=== PATIENT | male | born 1975 | race African-American/Black ===

== ENCOUNTER 2019-01-12 11:24 | Emergency (ER) | payer MEDICAID, OTHER ==
[~2019-01-12] VITALS: Ht 185.4 cm; Wt 97.1 kg
--- NOTE | 2019-01-12 12:25 | NUR ---
PREC;D TO ER FOR C THIAGO QUIET CALM GIVEN CALL LIGHT LAB IN TO DRAW BLOOD AND COLECT URINE
[2019-01-12 12:45] LABS: BASOPHILS # (AUTO) 0.1 /CMM (0.0-0.2); EOSINOPHILS % (AUTO) 0.3 % (0.0-6.0); HEMATOCRIT 43 % (39-51); HEMOGLOBIN 14.7 g/dL (13.5-17.5); LYMPHOCYTES # (AUTO) 1.3 /CMM (0.8-4.8); LYMPHOCYTES % (AUTO) 20.9 % (20.0-44.0); MEAN CORPUSCULAR HGB CONC 34 g/dl (31.0-36.0); MEAN CORPUSCULAR VOLUME 97 fL (80-96); MONOCYTES # (AUTO) 0.7 /CMM (0.1-1.30); MONOCYTES % (AUTO) 11.5 % (2.0-12.0); NEUTROPHILS # (AUTO) 4.2 /CMM (1.8-8.9); NEUTROPHILS % (AUTO) 66.3 % (43.0-81.0); PLATELET COUNT (AUTO) 258 /CMM (150-450); RED BLOOD CELL COUNT(AUTO) 4.48 MIL/uL (4.5-6.0); WHITE BLOOD COUNT (AUTO) 6.3 K/uL (4.3-11.0)
[2019-01-12 13:13] LABS: CALCIUM, SERUM 9.1 mg/dL (8.5-10.1); CARBON DIOXIDE 28 mmol/L (21-32); CHLORIDE 103 mmol/L (98-107); CREATININE 1.1 mg/dL (0.6-1.3); GLUCOSE 99 mg/dL (74-106); POTASSIUM 4.3 mmol/L (3.5-5.1); SODIUM SERUM 138 mmol/L (136-145); UREA NITROGEN, BLOOD 16 mg/dL (7-18)
[2019-01-12 13:27] LABS: ALANINE AMINOTRANSFERASE 79 U/L (12-78); ALBUMIN 3.9 g/dL (3.4-5.0); ALCOHOL, BLOOD < 3 mg/dL (0-0); ALKALINE PHOSPHATASE 66 U/L (46-116); ASPARTATE AMINOTRANSFERASE 66 U/L (15-37); BILIRUBIN,DIRECT 0.4 mg/dL (0.0-0.2); BILIRUBIN,TOTAL 1.8 mg/dL (0.2-1.0); TOTAL PROTEIN, SERUM 7.2 g/dL (6.4-8.2)
[2019-01-12 13:29] LABS: ACETAMINOPHEN 0 ug/ml (10-30); SALICYLATE < 0.2 mg/dL (2.8-20.0)
--- NOTE | 2019-01-12 14:18 | NUR ---
PT UP IN BR WASHING UP BACK TO BED
[2019-01-12 16:18] LABS: APPEARANCE,URINE Clear (CLEAR); BILIRUBIN,URINE Negative (NEGATIVE); BLOOD, URINE Negative Ery/uL (NEGATIVE); COLOR,URINE Yellow (YELLOW); KETONES,URINE Negative (NEGATIVE); LEUKOCYTE ESTERASE ,URINE Trace (NEGATIVE); NITRITE, URINE Negative (NEGATIVE); PROTEIN,URINE Negative (NEGATIVE); UGLUCOSE Negative (NEGATIVE)
[2019-01-12 16:19] LABS: BACTERIA,URINE None seen /HPF (None Seen); RBC,URINE 0-2 /HPF (0-2); SQUAMOUS EPITHELIAL CELL,UR Few /HPF (None Seen); WBC,URINE 0-2 /HPF (0-3)
--- NOTE | 2019-01-12 17:13 | NUR ---
REPORT GIVEN TO KADIE AVERY AT [facility] FOR ALEX
--- NOTE | 2019-01-12 17:14 | NUR ---
RUFUS WILL CALL BLS TO [facility] TRIP #[id number]
--- NOTE | 2019-01-12 17:33 | NUR ---
RUFUS YANEZ TO [facility]. ETA AT [phone]. TRIP #[id number]
[2019-01-12 18:56] VITALS: BP 138/94
--- NOTE | 2019-01-12 19:10 | NUR ---
PT RECEIVED FROM [facility] FOR ALEX. PT IS PENDING TRANSFER TO [facility]. PT IN BED IN STABLE CONDITION. NAD. PT REFUSED TO HAVE HIS VITALS SIGN TAKEN.
--- NOTE | 2019-01-12 20:00 | NUR ---
PT BEING P/U BY AMBULANCE UNIT 113 FOR TRANSPORT TO [facility]. PT IS STABLE FOR TRANSPORT.
== END 2019-01-12 20:10 ==
LOC: EDBD 11:26 → ER 11:26
DX: F25.9 Schizoaffective disorder, unspecified (principal)
CPT/HCPCS: 36415; 80048; 80076; 80305; 80307; 80329; 81001; 85025; 99285; G0480; 81000-TC

== ENCOUNTER 2019-11-04 18:31 | Emergency (ER) | payer MEDICAID, OTHER ==
[~2019-11-04] VITALS: Ht 185.4 cm; Wt 97.5 kg
--- NOTE | 2019-11-04 19:15 | NUR ---
PT TO ER AGGIE SWARTZ UPON ARRIVAL. PT DENIES SI/HI. PT ONLY STATES THAT HE WOULD LIKE TO SPEAK TO A MANAGER ENGLISH. NO SIGNS OF DISTRESS NOTED. PT VITAL SIGNS STABLE. WILL CONT TO MONITOR PT.
[2019-11-04 19:23] LABS: BASOPHILS # (AUTO) 0.1 /CMM (0.0-0.2); BASOPHILS % (AUTO) 0.8 % (0.0-2.0); HEMATOCRIT 45 % (39-51); HEMOGLOBIN 15.1 g/dL (13.5-17.5); LYMPHOCYTES # (AUTO) 1.6 /CMM (0.8-4.8); LYMPHOCYTES % (AUTO) 22.4 % (20.0-44.0); MEAN CORPUSCULAR HGB CONC 33 g/dl (31.0-36.0); MEAN CORPUSCULAR VOLUME 97 fL (80-96); MONOCYTES # (AUTO) 0.5 /CMM (0.1-1.30); MONOCYTES % (AUTO) 7.3 % (2.0-12.0); NEUTROPHILS # (AUTO) 4.9 /CMM (1.8-8.9); NEUTROPHILS % (AUTO) 68.5 % (43.0-81.0); PLATELET COUNT (AUTO) 381 /CMM (150-450); RED BLOOD CELL COUNT(AUTO) 4.68 MIL/uL (4.5-6.0); WHITE BLOOD COUNT (AUTO) 7.2 K/uL (4.3-11.0)
[2019-11-04 19:31] LABS: CALCIUM, SERUM 9.6 mg/dL (8.5-10.1); CARBON DIOXIDE 25 mmol/L (21-32); CHLORIDE 100 mmol/L (98-107); GLUCOSE 109 mg/dL (74-106); SODIUM SERUM 136 mmol/L (136-145); UREA NITROGEN, BLOOD 16 mg/dL (7-18)
[2019-11-04 19:37] LABS: ALANINE AMINOTRANSFERASE 82 U/L (12-78); ALBUMIN 4.3 g/dL (3.4-5.0); ALCOHOL, BLOOD < 3 mg/dL (0-0); ALKALINE PHOSPHATASE 78 U/L (46-116); ASPARTATE AMINOTRANSFERASE 50 U/L (15-37); BILIRUBIN,DIRECT 0.2 mg/dL (0.0-0.2); BILIRUBIN,TOTAL 0.6 mg/dL (0.2-1.0); TOTAL PROTEIN, SERUM 7.9 g/dL (6.4-8.2)
[2019-11-04 19:39] LABS: ACETAMINOPHEN 0 ug/ml (10-30)
[2019-11-04 19:50] LABS: APPEARANCE,URINE Clear (CLEAR); BILIRUBIN,URINE Negative (NEGATIVE); BLOOD, URINE Negative Ery/uL (NEGATIVE); COLOR,URINE Yellow (YELLOW); KETONES,URINE Negative (NEGATIVE); LEUKOCYTE ESTERASE ,URINE Negative (NEGATIVE); NITRITE, URINE Negative (NEGATIVE); PH,URINE 6.5 (5.0-8.0); PROTEIN,URINE 30 mg/dl (NEGATIVE); UGLUCOSE Negative (NEGATIVE); UROBILINOGEN,URINE 0.2 EU/dL (0.2)
[2019-11-04 20:14] LABS: RBC,URINE 0-2 /HPF (0-2); WBC,URINE 0-2 /HPF (0-3)
[2019-11-04 20:15] LABS: BACTERIA,URINE RARE /HPF (None Seen); MUCUS,URINE Few /LPF (None Seen); SPERM,URINE Few /HPF (None Seen); SQUAMOUS EPITHELIAL CELL,UR 0-2 /HPF (None Seen)
[2019-11-04] MEDS ORDERED: OLANZAPINE 5 MG TABLET PO ONE (20:30)
[2019-11-04] MEDS ORDERED: OLANZAPINE 5 MG TABLET ONE (20:36)
--- NOTE | 2019-11-04 22:30 | NUR ---
PT SLEEPING IN [facility] NO SIGNS OF DISTRESS NOTED. PT VITAL SIGNS STABLE. WILL CONT TO MONITOR PT.
--- NOTE | 2019-11-05 04:00 | NUR ---
PT SLEEPING IN [facility] NO SIGNS OF DISTRESS NOTED. PT VITAL SIGNS STABLE. WILL CONT TO MONITOR PT.
--- NOTE | 2019-11-05 08:21 | NUR ---
NABEEL AGUILLON AT BEDSIDE FOR EVAL.
--- NOTE | 2019-11-05 08:59 | NUR ---
FOOD TRAY PROVIDED.
--- NOTE | 2019-11-05 10:55 | NUR ---
Social service consult requested by MD per pt's request. Pt is a 44-year-old male, presenting to the ER because he was sent from [facility] for evaluation prior to being admitted. He wants to be admitted for stabilization, denies auditory/visual examination, denies homicidal/suicidal ideation. LEVELER met with the pt bedside. Pt is alert and oriented x 4. Pt is cooperative and pleasant. Pt reports, he would like to go to an inpatient treatment program. Pt has been to one prior treatment program in the past at [facility] in [place]. LEVELER contacted [facility], however they have no availability at this time. LEVELER contacted Fredy Berg from [facility] for assistance for a treatment program for the pt. Fredy met with the pt and referred pt to [facility]. Per Fredy, he spoke with Veena at [facility] x [phone] who will have a bed for the pt. LEVELER faxed clinical referral packet to Veena at [facility]. JAYSON awaits f/u from [facility]. Addendum: 11/05/19 at 1111 by NABEEL AGUILLON JAYSON left a voicemail message for social work program coordinator at [facility], Ly requesting a call back.
--- NOTE | 2019-11-05 12:15 | NUR ---
ICT PROGRAMMER received a call back from Bhumi at [facility]. Per [facility], it takes a couple of days to review clinicals and there are no beds available at this time. Pt will be placed in a waitlist. ICT PROGRAMMER met with the pt in ED and informed pt about being on a waitlist. ICT PROGRAMMER gave pt phone contact information for Bhumi at [facility] and requested for him to follow up with her daily until a bed is available. Pt understood. ICT PROGRAMMER provided active listening, supportive counseling and validated pt's feelings. ICT PROGRAMMER provided pt with Addiction Resources and Sober living resource list. ICT PROGRAMMER completed [facility] Pre-screen form with the pt and faxed it to [facility] at .
[2019-11-05 12:54] VITALS: BP 121/74
--- NOTE | 2019-11-05 12:54 | NUR ---
Patient given written and verbal discharge instructions. Patient verbalizes understanding of instructions. Patient is ambulatory with steady gait. Refuses offer of nursing home placement. Patient given list of available shelters in surrounding area.
== END 2019-11-05 12:56 | disposition home or self-care (01) ==
LOC: ER 18:40
DX: R45.1 Restlessness and agitation (principal); F19.10 Other psychoactive substance abuse, uncomplicated; F25.9 Schizoaffective disorder, unspecified; F32.9 Major depressive disorder, single episode, unspecified; Z98.890 Other specified postprocedural states
CPT/HCPCS: 36415; 80048; 80076; 80305; 80307; 80329; 81001; 85025; 99283; G0480; 81000-TC

== ENCOUNTER 2019-12-20 02:08 | Emergency (ER) | payer MEDICAID, OTHER ==
[~2019-12-20] VITALS: Ht 185.4 cm; Wt 101.6 kg
--- NOTE | 2019-12-20 02:35 | NUR ---
PT CAME TO THE ED C/O HEARING VOICES AND SI W/ A PLAN TO RUN INTO TRAFFIC. PT AAOX4, RESPIRATIONS EVEN AND UNLABORED ON RA W/ NAD NOTED. PT CONNECTED TO THE MONITOR AND POX, CHANGED INTO GOWN, BELONGINGS PLACED TO LOCKER. SUICIDE PRECAUTIONS IMPLEMNTED. SITTER AT BEDSIDE FOR SAFETY.
[2019-12-20 02:47] LABS: APPEARANCE,URINE CLEAR (CLEAR); BILIRUBIN,URINE NEGATIVE (NEGATIVE); BLOOD, URINE NEGATIVE Ery/uL (NEGATIVE); COLOR,URINE YELLOW (YELLOW); KETONES,URINE NEGATIVE (NEGATIVE); LEUKOCYTE ESTERASE ,URINE NEGATIVE (NEGATIVE); NITRITE, URINE NEGATIVE (NEGATIVE); PH,URINE 6.5 (5.0-8.0); PROTEIN,URINE NEGATIVE (NEGATIVE); UGLUCOSE NEGATIVE (NEGATIVE); UROBILINOGEN,URINE 0.2 EU/dL (0.2)
[2019-12-20 02:53] LABS: BASOPHILS % (AUTO) 0.8 % (0.0-2.0); CALCIUM, SERUM 8.1 mg/dL (8.5-10.1); CARBON DIOXIDE 27 mmol/L (21-32); CHLORIDE 101 mmol/L (98-107); CREATININE 1.3 mg/dL (0.6-1.3); EOSINOPHILS % (AUTO) 1.3 % (0.0-6.0); GLUCOSE 101 mg/dL (74-106); HEMATOCRIT 40 % (39-51); HEMOGLOBIN 13.5 g/dL (13.5-17.5); LYMPHOCYTES % (AUTO) 44.2 % (20.0-44.0); MEAN CORPUSCULAR HGB CONC 34 g/dl (31.0-36.0); MEAN CORPUSCULAR VOLUME 95 fL (80-96); MONOCYTES # (AUTO) 0.5 /CMM (0.1-1.30); MONOCYTES % (AUTO) 10.7 % (2.0-12.0); NEUTROPHILS # (AUTO) 1.9 /CMM (1.8-8.9); PLATELET COUNT (AUTO) 277 /CMM (150-450); POTASSIUM 3.9 mmol/L (3.5-5.1); RED BLOOD CELL COUNT(AUTO) 4.23 MIL/uL (4.5-6.0); SODIUM SERUM 138 mmol/L (136-145); UREA NITROGEN, BLOOD 14 mg/dL (7-18); WHITE BLOOD COUNT (AUTO) 4.4 K/uL (4.3-11.0)
[2019-12-20 02:59] LABS: ACETAMINOPHEN 0 ug/ml (10-30); ALANINE AMINOTRANSFERASE 43 U/L (12-78); ALBUMIN 3.3 g/dL (3.4-5.0); ALCOHOL, BLOOD < 3 mg/dL (0-0); ALKALINE PHOSPHATASE 61 U/L (46-116); ASPARTATE AMINOTRANSFERASE 37 U/L (15-37); BILIRUBIN,DIRECT 0.1 mg/dL (0.0-0.2); BILIRUBIN,TOTAL 0.3 mg/dL (0.2-1.0); SALICYLATE 1.1 mg/dL (2.8-20.0); TOTAL PROTEIN, SERUM 6.9 g/dL (6.4-8.2)
--- NOTE | 2019-12-20 05:01 | NUR ---
PT RESTING COMFORTABLY. NO ACUTE DISTRESS NOTED. VSS
--- NOTE | 2019-12-20 06:13 | NUR ---
PT ACCEPTED TO [facility] BY DR HEMPHILL. UNIT 1. # FOR REPORT [phone]
--- NOTE | 2019-12-20 06:44 | NUR ---
[facility] CALLED FOR BLS TRANSPORT. ETA [phone] TRIP# [id number]
--- NOTE | 2019-12-20 08:10 | NUR ---
REPORT GIVEN TO [facility] NURSING SUPP INES FOR ALEX. WILL ADMIT PATIENT AT 1000 PENDING DISCHARGE.
--- NOTE | 2019-12-20 08:19 | NUR ---
FOOD TRAY PROVIDED.
--- NOTE | 2019-12-20 08:33 | NUR ---
CALLED CALL THE CAR, CHANGED ETA TO 1000. SAME TRIP NUMBER WITH [facility].
[2019-12-20 10:00] VITALS: BP 121/80
== END 2019-12-20 10:04 ==
LOC: ER 02:08
DX: R45.851 Suicidal ideations (principal); F25.9 Schizoaffective disorder, unspecified
CPT/HCPCS: 36415; 80048; 80076; 80305; 80307; 80329; 81001; 85025; 99285; A4349; G0480; 81000-TC

== ENCOUNTER 2020-03-08 14:12 | Emergency (ER) | payer OTHER ==
[~2020-03-08] VITALS: Ht 185.4 cm; Wt 89.8 kg
--- NOTE | 2020-03-08 14:17 | NUR ---
came in stating "I was [place] was told to come here for medical clearance. Depressed, hearing voices", to ER bed 14, hooked to monitor, changed to hosp gown, warm blanket provided, awaiting MD farnsworth.
--- NOTE | 2020-03-08 14:29 | NUR ---
Dr Wyatt at bedside for eval
--- NOTE | 2020-03-08 14:31 | NUR ---
urine sample collected and sent to lab
--- NOTE | 2020-03-08 14:43 | NUR ---
nitriles lab technician at bedside
--- NOTE | 2020-03-08 14:53 | NUR ---
Patient awake alert non distress Lab @ bedside
[2020-03-08 15:00] LABS: BASOPHILS # (AUTO) 0.1 /CMM (0.0-0.2); BASOPHILS % (AUTO) 1.1 % (0.0-2.0); EOSINOPHILS % (AUTO) 0.7 % (0.0-6.0); HEMATOCRIT 43 % (39-51); HEMOGLOBIN 14.4 g/dL (13.5-17.5); LYMPHOCYTES # (AUTO) 2.2 /CMM (0.8-4.8); LYMPHOCYTES % (AUTO) 25.1 % (20.0-44.0); MEAN CORPUSCULAR HGB CONC 33 g/dl (31.0-36.0); MEAN CORPUSCULAR VOLUME 97 fL (80-96); MONOCYTES # (AUTO) 0.6 /CMM (0.1-1.30); MONOCYTES % (AUTO) 7.4 % (2.0-12.0); NEUTROPHILS # (AUTO) 5.8 /CMM (1.8-8.9); NEUTROPHILS % (AUTO) 65.7 % (43.0-81.0); PLATELET COUNT (AUTO) 376 /CMM (150-450); RED BLOOD CELL COUNT(AUTO) 4.46 MIL/uL (4.5-6.0); WHITE BLOOD COUNT (AUTO) 8.8 K/uL (4.3-11.0)
[2020-03-08 15:22] LABS: APPEARANCE,URINE CLEAR (CLEAR); BILIRUBIN,URINE NEGATIVE (NEGATIVE); BLOOD, URINE NEGATIVE Ery/uL (NEGATIVE); COLOR,URINE YELLOW (YELLOW); KETONES,URINE NEGATIVE (NEGATIVE); LEUKOCYTE ESTERASE ,URINE SMALL (NEGATIVE); NITRITE, URINE NEGATIVE (NEGATIVE); PROTEIN,URINE NEGATIVE (NEGATIVE); UGLUCOSE NEGATIVE (NEGATIVE); UROBILINOGEN,URINE 0.2 EU/dL (0.2)
[2020-03-08 15:28] LABS: CALCIUM, SERUM 9.9 mg/dL (8.5-10.1); CARBON DIOXIDE 30 mmol/L (21-32); CHLORIDE 99 mmol/L (98-107); GLUCOSE 86 mg/dL (74-106); POTASSIUM 4.1 mmol/L (3.5-5.1); SODIUM SERUM 136 mmol/L (136-145); UREA NITROGEN, BLOOD 12 mg/dL (7-18)
[2020-03-08 15:36] LABS: ALANINE AMINOTRANSFERASE 54 U/L (12-78); ALCOHOL, BLOOD < 3 mg/dL (0-0); ALKALINE PHOSPHATASE 68 U/L (46-116); ASPARTATE AMINOTRANSFERASE 33 U/L (15-37); BILIRUBIN,DIRECT 0.1 mg/dL (0.0-0.2); BILIRUBIN,TOTAL 0.4 mg/dL (0.2-1.0); TOTAL PROTEIN, SERUM 8.1 g/dL (6.4-8.2)
[2020-03-08 15:44] LABS: ACETAMINOPHEN 0 ug/ml (10-30); SALICYLATE 0.6 mg/dL (2.8-20.0)
--- NOTE | 2020-03-08 16:08 | NUR ---
CALLED [facility] [phone] THEY HAVE A WAIT LIST AND WILL CALL US BACK.
[2020-03-08] MEDS ORDERED: OLANZAPINE 5 MG TABLET PO ONE (17:30)
[2020-03-08] MEDS ORDERED: OLANZAPINE 5 MG TABLET ONE (17:33)
--- NOTE | 2020-03-08 17:37 | NUR ---
PATIENT SITTING AT THE SIDE OF BED, FIXING HIS BELONGINGS, HOOKED TO MONITOR, VSS. WILL CONTINUE TO MONITOR ACCORDINGLY
--- NOTE | 2020-03-08 20:00 | NUR ---
PER [facility], NO BED AVAIALBLE AT [facility] AT THIS TIME
--- NOTE | 2020-03-08 21:19 | NUR ---
PT ASLEEP. PROVIDED WITH BLANKET.
--- NOTE | 2020-03-09 06:36 | NUR ---
PT RESING COMFORTABLY. VSS.
--- NOTE | 2020-03-09 07:06 | NUR ---
PER CJ FROM [facility], NO BEDS AVAILABLE AT THIS TIME
--- NOTE | 2020-03-09 07:54 | NUR ---
[facility] CALL[facility],CJ SAID THEIR FACILITIES ARE AT FULL CAPACITY
--- NOTE | 2020-03-09 10:21 | NUR ---
Social service consult requested by MD for voluntary psychiatric hospitalization. Pt is a 44-year-old male, presenting to the ER stating he has been hearing voices that are constant and not allowing him to continue with his life. He wants to be admitted for stabilization. SUPPLY TECHNICIAN met with the pt bedside. SUPPLY TECHNICIAN conducted chart review and met with the pt bedside. SUPPLY TECHNICIAN introduced self, explained the role of SW and purpose of the visit. SUPPLY TECHNICIAN is familiar with the pt from a previous ED visit. Pt is alert and oriented x 4 with appropriate affect. Pt is cooperative and pleasant. Pt reports, he is hearing voices that are yelling at him and telling him to hurt himself. Pt reports, he usually is able to manage his voices but is not able to do so this time. he would like to go to a psychiatric hospital. Pt has history of substance use/abuse. Pt uses alcohol and methamphetamines. Pt last used methamphetamines two days ago. Pt has a history of Schizoaffective Disorder. Pt has history of psychiatric hospitalizations. JAYSON provided pt with active listening, supportive counseling, emotional support and validation of feelings. JAYSON referred pt to Giancarlo at [facility] for voluntary psychiatric admission. Per Giancarlo, they will have a bed for the pt, however it will be later in the day since the discharges at [facility] are delayed today. JAYSON updated CRN Gener in ED.
--- NOTE | 2020-03-09 14:11 | NUR ---
BELL HOLE DIGGER received a call from Gilma from [facility] intake. pt has been accepted to [facility]. Report needs to be called to process development chemistGAEL Ortiz at x [phone]. Accepting Dr. Ramírez/Dr. Xie.
--- NOTE | 2020-03-09 14:21 | NUR ---
PT HAS BEEN ACCEPTED TO [facility]. Report needs to be called to music adapterGAEL Ortiz at x [phone]. Accepting Dr. Ramírez/Dr. Xie.
--- NOTE | 2020-03-09 14:35 | NUR ---
CALLED TRANSPORT ETA IS 1500 PER RYDER.
--- NOTE | 2020-03-09 15:11 | NUR ---
patient verbalized "i am not suicidal", made aware.
[2020-03-09 15:22] VITALS: BP 122/64
--- NOTE | 2020-03-09 15:22 | NUR ---
patient left without signing discharge paper, denies any pain or discomfort. denies SI/HI.
== END 2020-03-09 15:22 | disposition home or self-care (01) ==
LOC: ER 14:16
DX: R44.0 Auditory hallucinations (principal); R45.851 Suicidal ideations; F32.9 Major depressive disorder, single episode, unspecified; Z04.6 Encounter for general psychiatric examination, requested by authority
CPT/HCPCS: 36415; 80048; 80076; 80305; 80307; 80329; 81001; 85025; 99285; G0480; 81000-TC

== ENCOUNTER 2020-03-19 11:42 | Emergency (ER) | payer OTHER ==
[~2020-03-19] VITALS: Ht 185.4 cm; Wt 97.5 kg
--- NOTE | 2020-03-19 11:54 | NUR ---
NORM RA 102 "Homeless/Hearing voices/suicidal ideation. No Plan", TO ER BED 11, HOOKED TO MONITOR, CHANGED TO HOSP GOWN, WARM BLANKET PROVIDED. PATIENT AAO x 4, NAD NOTED. SUICIDAL PRECAUTIONS APPLIED. SITTER AT BEDSIDE FOR SAFETY
--- NOTE | 2020-03-19 11:57 | NUR ---
SEEN AND EXAMINED BY .
--- NOTE | 2020-03-19 12:02 | NUR ---
SECURITY AT BEDSIDE FOR WANDING. BELONGINGS TAKEN, PLACED AT PATIENT'S LOCKER.
--- NOTE | 2020-03-19 12:10 | NUR ---
URINE SPECIMEN COLLECTED AND SENT TO LAB.
[2020-03-19 12:25] LABS: APPEARANCE,URINE Clear (CLEAR); BILIRUBIN,URINE Negative (NEGATIVE); BLOOD, URINE Negative Ery/uL (NEGATIVE); COLOR,URINE Yellow (YELLOW); KETONES,URINE Negative (NEGATIVE); LEUKOCYTE ESTERASE ,URINE Negative (NEGATIVE); NITRITE, URINE Negative (NEGATIVE); PROTEIN,URINE 30 mg/dl (NEGATIVE); UGLUCOSE Negative (NEGATIVE)
[2020-03-19 12:26] LABS: BACTERIA,URINE None seen /HPF (None Seen); RBC,URINE 0-2 /HPF (0-2); SQUAMOUS EPITHELIAL CELL,UR None Seen /HPF (None Seen); WBC,URINE 0-2 /HPF (0-3)
--- NOTE | 2020-03-19 12:31 | NUR ---
Meryl pathak in [facility] - 03/19/20 at 1235 by TANJA ABBOTT [facility] 115-1
--- NOTE | 2020-03-19 12:35 | NUR ---
ER PHLEB AT BEDSIDE FOR BLOOD DRAW.
[2020-03-19 12:44] LABS: BASOPHILS # (AUTO) 0.1 /CMM (0.0-0.2); BASOPHILS % (AUTO) 1.4 % (0.0-2.0); EOSINOPHILS % (AUTO) 1.2 % (0.0-6.0); HEMATOCRIT 40 % (39-51); LYMPHOCYTES # (AUTO) 1.7 /CMM (0.8-4.8); LYMPHOCYTES % (AUTO) 29.2 % (20.0-44.0); MEAN CORPUSCULAR HGB CONC 33 g/dl (31.0-36.0); MEAN CORPUSCULAR VOLUME 97 fL (80-96); MONOCYTES # (AUTO) 0.6 /CMM (0.1-1.30); MONOCYTES % (AUTO) 10.8 % (2.0-12.0); NEUTROPHILS # (AUTO) 3.4 /CMM (1.8-8.9); NEUTROPHILS % (AUTO) 57.4 % (43.0-81.0); PLATELET COUNT (AUTO) 329 /CMM (150-450); RED BLOOD CELL COUNT(AUTO) 4.11 MIL/uL (4.5-6.0)
[2020-03-19 12:52] LABS: CALCIUM, SERUM 8.8 mg/dL (8.5-10.1); CARBON DIOXIDE 29 mmol/L (21-32); CHLORIDE 104 mmol/L (98-107); GLUCOSE 109 mg/dL (74-106); POTASSIUM 4.1 mmol/L (3.5-5.1); SODIUM SERUM 139 mmol/L (136-145); UREA NITROGEN, BLOOD 10 mg/dL (7-18)
[2020-03-19 12:58] LABS: ACETAMINOPHEN 0 ug/ml (10-30); ALANINE AMINOTRANSFERASE 58 U/L (12-78); ALBUMIN 3.5 g/dL (3.4-5.0); ALCOHOL, BLOOD < 3 mg/dL (0-0); ALKALINE PHOSPHATASE 68 U/L (46-116); ASPARTATE AMINOTRANSFERASE 32 U/L (15-37); BILIRUBIN,DIRECT 0.1 mg/dL (0.0-0.2); BILIRUBIN,TOTAL 0.3 mg/dL (0.2-1.0); SALICYLATE 0.4 mg/dL (2.8-20.0); TOTAL PROTEIN, SERUM 6.8 g/dL (6.4-8.2)
--- NOTE | 2020-03-19 13:30 | NUR ---
Social service consult requested for voluntary psychiatric hospitalization. Per MD notes, pt is a 44-year-old male, patient is brought in by paramedics. Patient states he is hearing voices and feels suicidal. Voices are telling him to run into traffic. ROAD WORKER is familiar with the pt from previous ED visit for the same complaint. ROAD WORKER conducted chart review and contacted Giancarlo at [facility] and initiated psychiatric voluntary hospitalization. ROAD WORKER faxed clinicals to [facility] intake. SW informed Heriberto in ED with aforementioned information.
--- NOTE | 2020-03-19 14:06 | NUR ---
LUNCH TRAY PROVIDED, TOLERATING PO WELL.
--- NOTE | 2020-03-19 16:24 | NUR ---
PT IS ACCEPTED TO [facility] BY NUMBER FOR REPORT [phone]
--- NOTE | 2020-03-19 16:26 | NUR ---
REPORT GIVEN TO [facility]EL [facility]HL[facility].
--- NOTE | 2020-03-19 16:33 | NUR ---
CALLED TRANSPORT ETA IS 60 MINS
--- NOTE | 2020-03-19 17:41 | NUR ---
REPORT GIVEN TO EMT FOR PT TRANSFER TO [facility].
--- NOTE | 2020-03-19 18:06 | NUR ---
PICKED UP BY [facility] UNIT 42 IN STABLE CONDITION, PATIENT WILL BE BROUGHT TO [facility].
[2020-03-19 18:08] VITALS: BP 162/92
== END 2020-03-19 18:09 ==
LOC: ER 11:46
DX: R45.851 Suicidal ideations (principal); F25.9 Schizoaffective disorder, unspecified; Z59.0 Homelessness
CPT/HCPCS: 36415; 80048; 80076; 80305; 80307; 80329; 81001; 85025; 99285; G0480; 81000-TC

== ENCOUNTER 2020-04-13 21:33 | Emergency (ER) | payer OTHER ==
[~2020-04-13] VITALS: Ht 185.4 cm; Wt 90.7 kg
[2020-04-13 22:02] VITALS: BP 125/74
[2020-04-13 22:41] LABS: BASOPHILS # (AUTO) 0.1 /CMM (0.0-0.2); EOSINOPHILS % (AUTO) 0.8 % (0.0-6.0); HEMATOCRIT 43 % (39-51); HEMOGLOBIN 14.2 g/dL (13.5-17.5); LYMPHOCYTES # (AUTO) 2.3 /CMM (0.8-4.8); LYMPHOCYTES % (AUTO) 26.6 % (20.0-44.0); MEAN CORPUSCULAR HGB CONC 33 g/dl (31.0-36.0); MEAN CORPUSCULAR VOLUME 96 fL (80-96); MONOCYTES # (AUTO) 0.7 /CMM (0.1-1.30); MONOCYTES % (AUTO) 7.9 % (2.0-12.0); NEUTROPHILS # (AUTO) 5.5 /CMM (1.8-8.9); NEUTROPHILS % (AUTO) 63.7 % (43.0-81.0); PLATELET COUNT (AUTO) 335 /CMM (150-450); RED BLOOD CELL COUNT(AUTO) 4.52 MIL/uL (4.5-6.0); WHITE BLOOD COUNT (AUTO) 8.6 K/uL (4.3-11.0)
[2020-04-13] MEDS ORDERED: TAMSULOSIN 0.4 MG CAP.SR.24H ONE (22:48)
--- NOTE | 2020-04-13 22:52 | NUR ---
URINE SENT TO LAB
[2020-04-13 22:56] LABS: ALBUMIN 3.5 g/dL (3.4-5.0); BILIRUBIN,DIRECT 0.2 mg/dL (0.0-0.2); BILIRUBIN,TOTAL 0.6 mg/dL (0.2-1.0); CALCIUM, SERUM 8.6 mg/dL (8.5-10.1); CREATININE 1.1 mg/dL (0.6-1.3); TOTAL PROTEIN, SERUM 7.2 g/dL (6.4-8.2)
[2020-04-13] MEDS ORDERED: TAMSULOSIN 0.4 MG CAP.SR.24H PO ONE (23:00)
[2020-04-13 23:10] LABS: APPEARANCE,URINE CLEAR (CLEAR); BILIRUBIN,URINE NEGATIVE (NEGATIVE); BLOOD, URINE NEGATIVE Ery/uL (NEGATIVE); COLOR,URINE YELLOW (YELLOW); KETONES,URINE NEGATIVE (NEGATIVE); LEUKOCYTE ESTERASE ,URINE NEGATIVE (NEGATIVE); NITRITE, URINE NEGATIVE (NEGATIVE); PH,URINE 6.5 (5.0-8.0); PROTEIN,URINE NEGATIVE (NEGATIVE); UGLUCOSE NEGATIVE (NEGATIVE); UROBILINOGEN,URINE 0.2 EU/dL (0.2)
--- NOTE | 2020-04-13 23:42 | NUR ---
Patient discharged to home in stable condition. Written and verbal after care instructions given. Patient verbalizes understanding of instruction. Pt ambulatory with a steady gait
--- NOTE | 2020-04-13 23:45 | NUR ---
HOMELESS WAIVER SIGNED BY THE PATIENT
== END 2020-04-13 23:48 | disposition home or self-care (01) ==
LOC: ER 21:35
DX: N40.0 Benign prostatic hyperplasia without lower urinary tract symptoms (principal); I10 Essential (primary) hypertension; F25.9 Schizoaffective disorder, unspecified; Z98.890 Other specified postprocedural states
CPT/HCPCS: 36415; 80048-TC; 80076-TC; 81000-TC; 83690-TC; 85025-TC

== ENCOUNTER 2020-04-22 13:42 | Emergency (ER) | payer OTHER ==
[~2020-04-22] VITALS: Ht 185.4 cm; Wt 93.0 kg
--- NOTE | 2020-04-22 13:58 | NUR ---
PT AMBULATORY TO ER BED 15. PT IS C/O BEING DEPRESSED X 2 DAYS AND STATES "IM SUICIDAL, RACING THOUGHTS, SUICIDE BY CARPENTER'S ASSISTANT" PT GOWNED. CALLED SECURITY FOR PATIENT WANDING. STABLE VITALS. AWAITING MD POE.
--- NOTE | 2020-04-22 14:00 | NUR ---
SECURITY AT BEDSIDE. PATIENT WANDED, BELONGINGS TO SAFE LOCKER. SITTER AT BEDSIDE.
[2020-04-22] MEDS ORDERED: TAMSULOSIN 0.4 MG CAP.SR.24H ONE (14:30)
[2020-04-22] MEDS ORDERED: TAMSULOSIN 0.4 MG CAP.SR.24H PO ONE (14:30)
[2020-04-22] MEDS ORDERED: ARIPIPRAZOLE 5 MG TABLET PO ONE (14:30)
--- NOTE | 2020-04-22 14:36 | NUR ---
PSYCHOMETRICIAN AT BEDSIDE FOR BLOOD DRAW.
[2020-04-22 14:42] LABS: BASOPHILS # (AUTO) 0.1 /CMM (0.0-0.2); BASOPHILS % (AUTO) 1.3 % (0.0-2.0); EOSINOPHILS % (AUTO) 2.1 % (0.0-6.0); HEMATOCRIT 41 % (39-51); HEMOGLOBIN 13.6 g/dL (13.5-17.5); LYMPHOCYTES # (AUTO) 1.9 /CMM (0.8-4.8); LYMPHOCYTES % (AUTO) 34.7 % (20.0-44.0); MEAN CORPUSCULAR HGB CONC 34 g/dl (31.0-36.0); MEAN CORPUSCULAR VOLUME 97 fL (80-96); MONOCYTES # (AUTO) 0.6 /CMM (0.1-1.30); MONOCYTES % (AUTO) 10.4 % (2.0-12.0); NEUTROPHILS # (AUTO) 2.9 /CMM (1.8-8.9); NEUTROPHILS % (AUTO) 51.5 % (43.0-81.0); PLATELET COUNT (AUTO) 359 /CMM (150-450); WHITE BLOOD COUNT (AUTO) 5.5 K/uL (4.3-11.0)
--- NOTE | 2020-04-22 14:51 | NUR ---
RAPID COVID19 SWAB DONE. SENT TO LAB. PT STILL UNABLE TO PROVIDE URINE SAMPLE. URINAL AT BEDSIDE.
[2020-04-22 14:52] LABS: CALCIUM, SERUM 8.4 mg/dL (8.5-10.1); CARBON DIOXIDE 26 mmol/L (21-32); CHLORIDE 101 mmol/L (98-107); GLUCOSE 132 mg/dL (74-106); POTASSIUM 3.6 mmol/L (3.5-5.1); SODIUM SERUM 136 mmol/L (136-145); UREA NITROGEN, BLOOD 17 mg/dL (7-18)
[2020-04-22 15:07] LABS: ALANINE AMINOTRANSFERASE 38 U/L (12-78); ALBUMIN 3.7 g/dL (3.4-5.0); ALKALINE PHOSPHATASE 67 U/L (46-116); ASPARTATE AMINOTRANSFERASE 34 U/L (15-37); BILIRUBIN,DIRECT 0.2 mg/dL (0.0-0.2); TOTAL PROTEIN, SERUM 7.1 g/dL (6.4-8.2)
[2020-04-22 15:10] LABS: ACETAMINOPHEN 0 ug/ml (10-30); ALCOHOL, BLOOD < 3 mg/dL (0-0); SALICYLATE < 0.2 mg/dL (2.8-20.0)
[2020-04-22 15:53] LABS: APPEARANCE,URINE CLEAR (CLEAR); BILIRUBIN,URINE NEGATIVE (NEGATIVE); BLOOD, URINE NEGATIVE Ery/uL (NEGATIVE); COLOR,URINE YELLOW (YELLOW); KETONES,URINE NEGATIVE (NEGATIVE); LEUKOCYTE ESTERASE ,URINE NEGATIVE (NEGATIVE); NITRITE, URINE NEGATIVE (NEGATIVE); PROTEIN,URINE NEGATIVE (NEGATIVE); UGLUCOSE NEGATIVE (NEGATIVE); UROBILINOGEN,URINE 0.2 EU/dL (0.2)
--- NOTE | 2020-04-22 16:17 | NUR ---
This SW faxed clinical to [phone] at [facility] .
--- NOTE | 2020-04-22 16:40 | NUR ---
3:30pm Medical Claims Analyst consult requested by GAEL Gutierrez for voluntary psychiatric treatment. Patient presented to the ED per MD note "SUICIDE BY SALES SERVICE ASSISTANT. Patient is a 44-year-old Male. Patient is alert and oriented x4. Patient was eating and receptive to speaking with this SW. Patient stopped eating for this assessment and covered his face with a mask per COVID-19. Patient confirmed information on face sheet including date of and demographics. Patient is currently residing in a friends home my own room patient recalled that the home is in [place]. Patient reports conducting ADLs and IADLs independently. Patient reports not working nor receiving benefits such as GR, [employer], SSI,SSD. SW asked this patient if he would like resources on how to apply, patient responded No thank you. I know how to apply for it, just havent done it. Patient denies alcohol use. Patient reports ecstasy use this week but did not want to report how he obtained it. Patient does not report cigarette use. Patient reported being diagnosed with schizophrenia and bipolar. Patient did not report having a primary psychiatrist to this SW. Patients current suicidal ideation is suicide by label sewer. When this SW asked the patient to elaborate, patient became quiet and then responded, suicide by label sewer, exactly what it means. Patient did not report a specific police station or plan. Patient report auditory hallucinations but did not want to report what they tell him. Patient informed this SW that he did not want to present to [facility] today. Patient reports that he has been able to control voices in the past but today was a bad day. This SW affirmed the patients choice to present to [facility]. Patient informed this SW that he would like voluntary psychiatric treatment at this facility ([facility]). This SW informed the patient that there is no unit at this facility to help monitor him, however this SW can refer him to [facility]. Patient agreed to this referral. This SW to fax clinicals to [phone] at [facility] . This SW to inform medical billing coordinator about patients suicide by label sewer plan for [facility] to follow-up. This SW to remain available for all needs regarding this patient.
--- NOTE | 2020-04-22 17:45 | NUR ---
PER [facility], WILL FOLLOW UP IN 15-20 MINUTES REGARDING TRANSFER TO [facility]
--- NOTE | 2020-04-22 18:08 | NUR ---
SPOKE TO [facility]. WAS INFORMED THAT THERE IS NO BED AVAILABLE AT THIS TIME.
--- NOTE | 2020-04-22 18:13 | NUR ---
PRINCESS SILVA - ACCEPTED BY DR. HEMPHILL ROOM NUMBER TO BE GIVEN UPON NURSE TO NURSE REPORT BLUE RN - [phone]
[2020-04-22 18:17] VITALS: BP 135/78
--- NOTE | 2020-04-22 18:21 | NUR ---
[facility] TRANSPORT WITH [facility] ETA: 1999. SPOKE TO "KRSITY".
--- NOTE | 2020-04-22 19:00 | NUR ---
REPORT GIVEN TO BLUE MAYO OF [facility] - THE PATIENT IS CLEARED FOR TRANSFER TO [facility]
--- NOTE | 2020-04-22 20:02 | NUR ---
REPORT GIVEN TO MILLICENT TELLEZ TO TRANSFER PT TO [facility].
== END 2020-04-22 20:21 ==
LOC: ER 13:42
DX: F25.1 Schizoaffective disorder, depressive type (principal); R45.851 Suicidal ideations; N40.0 Benign prostatic hyperplasia without lower urinary tract symptoms; F19.10 Other psychoactive substance abuse, uncomplicated; Z91.14 Patient's other noncompliance with medication regimen; Z20.828 Contact with and (suspected) exposure to other viral communicable diseases
CPT/HCPCS: 36415; 80048; 80076; 80305; 80307; 80329; 81001; 85025; 87426; 99285; C9803; G0480; 81000-TC

== ENCOUNTER 2020-05-02 06:42 | Emergency (ER) | payer OTHER ==
[~2020-05-02] VITALS: Ht 188 cm; Wt 92.5 kg
[2020-05-02 07:59] VITALS: BP 139/84
== END 2020-05-02 08:50 | disposition home or self-care (01) ==
LOC: ER 06:42
DX: G62.9 Polyneuropathy, unspecified (principal); M25.512 Pain in left shoulder; I10 Essential (primary) hypertension; N40.0 Benign prostatic hyperplasia without lower urinary tract symptoms; F25.9 Schizoaffective disorder, unspecified; Z98.890 Other specified postprocedural states

== ENCOUNTER 2020-05-02 13:40 | Emergency (ER) | payer OTHER ==
[~2020-05-02] VITALS: Ht 185.4 cm; Wt 90.7 kg
[2020-05-02 13:45] VITALS: BP 124/70
--- NOTE | 2020-05-02 13:57 | NUR ---
AT BEDSIDE FOR EVAL.
--- NOTE | 2020-05-02 14:42 | NUR ---
Patient given written and verbal discharge instructions. Patient verbalizes understanding of instructions. Patient is ambulatory with steady gait. Ref[place] offer of [place] [facility] [place]. Patient given list of available shelters in surrounding area.
== END 2020-05-02 14:56 | disposition home or self-care (01) ==
LOC: ER 13:45
DX: G62.9 Polyneuropathy, unspecified (principal); M25.512 Pain in left shoulder; I10 Essential (primary) hypertension; N40.0 Benign prostatic hyperplasia without lower urinary tract symptoms; F25.9 Schizoaffective disorder, unspecified; Z98.890 Other specified postprocedural states

== ENCOUNTER 2020-06-22 10:10 | Emergency (ER) | payer OTHER ==
[~2020-06-22] VITALS: Ht 185.4 cm; Wt 90.7 kg
--- NOTE | 2020-06-22 10:10 | NUR ---
PT BIB SELF C/O SI "I WANT THE PM TECHNICIAN TO SHOOT ME" PT IS AAOX4, NOT IN RESPIRATORY DISTRESS, V/S STABLE, KEPT RESTED AND COMFORTABLE. WILL CONTINUE TO MONITOR. SITTER AT BEDSIDE.
--- NOTE | 2020-06-22 10:26 | NUR ---
SEEN AND EXAMINED BY .
--- NOTE | 2020-06-22 10:29 | NUR ---
CALLED SECURITY FOR WANDING.
--- NOTE | 2020-06-22 10:50 | NUR ---
COVID SPECIMEN OBTAINED AND SENT TO LAB.
[2020-06-22] MEDS ORDERED: ZIPRASIDONE 20 MG CAPSULE PO SCH (11:00)
[2020-06-22 11:04] LABS: BASOPHILS % (AUTO) 0.1 % (0.0-2.0); EOSINOPHILS % (AUTO) 0.6 % (0.0-6.0); HEMATOCRIT 44 % (39-51); HEMOGLOBIN 14.7 g/dL (13.5-17.5); LYMPHOCYTES # (AUTO) 1.7 /CMM (0.8-4.8); LYMPHOCYTES % (AUTO) 27.8 % (20.0-44.0); MEAN CORPUSCULAR HGB CONC 33 g/dl (31.0-36.0); MEAN CORPUSCULAR VOLUME 97 fL (80-96); MONOCYTES # (AUTO) 0.6 /CMM (0.1-1.30); MONOCYTES % (AUTO) 9.2 % (2.0-12.0); NEUTROPHILS # (AUTO) 3.8 /CMM (1.8-8.9); NEUTROPHILS % (AUTO) 62.3 % (43.0-81.0); PLATELET COUNT (AUTO) 304 /CMM (150-450); RED BLOOD CELL COUNT(AUTO) 4.52 MIL/uL (4.5-6.0); WHITE BLOOD COUNT (AUTO) 6.1 K/uL (4.3-11.0)
[2020-06-22 11:15] LABS: CALCIUM, SERUM 9.1 mg/dL (8.5-10.1); CARBON DIOXIDE 27 mmol/L (21-32); CHLORIDE 100 mmol/L (98-107); CREATININE 1.1 mg/dL (0.6-1.3); GLUCOSE 96 mg/dL (74-106); POTASSIUM 3.5 mmol/L (3.5-5.1); SODIUM SERUM 133 mmol/L (136-145); UREA NITROGEN, BLOOD 16 mg/dL (7-18)
[2020-06-22 11:28] LABS: ALANINE AMINOTRANSFERASE 54 U/L (12-78); ALBUMIN 3.6 g/dL (3.4-5.0); ALCOHOL, BLOOD < 3 mg/dL (0-0); ALKALINE PHOSPHATASE 76 U/L (46-116); ASPARTATE AMINOTRANSFERASE 37 U/L (15-37); BILIRUBIN,DIRECT 0.3 mg/dL (0.0-0.2); BILIRUBIN,TOTAL 1.3 mg/dL (0.2-1.0); TOTAL PROTEIN, SERUM 7.5 g/dL (6.4-8.2)
[2020-06-22 11:33] LABS: ACETAMINOPHEN 0 ug/ml (10-30)
--- NOTE | 2020-06-22 12:35 | NUR ---
This SW faxed clinicals to [facility] Intake .
[2020-06-22 13:30] LABS: APPEARANCE,URINE Clear (CLEAR); BILIRUBIN,URINE Negative (NEGATIVE); BLOOD, URINE Negative Ery/uL (NEGATIVE); COLOR,URINE Yellow (YELLOW); LEUKOCYTE ESTERASE ,URINE Negative (NEGATIVE); NITRITE, URINE Negative (NEGATIVE); PROTEIN,URINE Negative (NEGATIVE); UGLUCOSE Negative (NEGATIVE)
--- NOTE | 2020-06-22 13:47 | NUR ---
This SW received a call from Yumiko at [facility] . Per Yumiko, patient has been accepted to [place] location [address] [place] [address] Ram[address]ran. Plan: ED RN to call to nursing supervisor maintenance and custodians (unit 2) to provide report.
--- NOTE | 2020-06-22 13:49 | NUR ---
[facility] [phone] GIVE REPORT TO TARA UNIT 2
[2020-06-22 13:55] LABS: BACTERIA,URINE Rare /HPF (None Seen); RBC,URINE 0-2 /HPF (0-2); SQUAMOUS EPITHELIAL CELL,UR Rare /HPF (None Seen); WBC,URINE 0-2 /HPF (0-3)
--- NOTE | 2020-06-22 14:00 | NUR ---
CALLED CALL THE CAR ETA 1500 RES# [id number]
--- NOTE | 2020-06-22 14:22 | NUR ---
REPORT GIVEN TO [facility]EL VILLA OF [facility].
--- NOTE | 2020-06-22 14:41 | NUR ---
[facility] ETA 1531
[2020-06-22 16:23] VITALS: BP 120/69
--- NOTE | 2020-06-22 16:25 | NUR ---
REPORT GIVEN TO EMS FOR PT TRANSFER TO [facility]
== END 2020-06-22 16:32 ==
LOC: ER 10:17
DX: R45.851 Suicidal ideations (principal); N40.0 Benign prostatic hyperplasia without lower urinary tract symptoms; I10 Essential (primary) hypertension; F25.9 Schizoaffective disorder, unspecified; Z59.0 Homelessness
CPT/HCPCS: 36415; 80048; 80076; 80299; 80307; 80320; 81001; 85025; 87426; 99285; C9803; 81000-TC; G0480

== ENCOUNTER 2020-06-30 02:38 | Emergency (ER) | payer OTHER ==
[~2020-06-30] VITALS: Ht 185.4 cm; Wt 90.7 kg
--- NOTE | 2020-06-30 02:57 | NUR ---
PT AAOX4. BIBSELF C/O REQUESTING VOL ADMISSION TO [facility] +SI/-HI "SUICIDE BY CUSTODIAL WORKER." PT PLACED IN GOWN, ON MONITOR, AND PULSE OX. PT BELONINGS PLACED IN LOCKER. SITTER AT BEDSIDE. AWAITING FOR MD FOR EVAL AND ORDERS.
--- NOTE | 2020-06-30 02:58 | NUR ---
URINE COLLECTED AND SENT TO LAB.
--- NOTE | 2020-06-30 02:59 | NUR ---
ALEXEYID SWABBED, SENT TO LAB.
--- NOTE | 2020-06-30 02:59 | NUR ---
TIRE MAINTENANCE TECHNICIAN AT BEDSIDE FOR BLOOD DRAW
[2020-06-30 03:08] LABS: BILIRUBIN,URINE Negative (NEGATIVE); BLOOD, URINE Negative Ery/uL (NEGATIVE); COLOR,URINE Yellow (YELLOW); LEUKOCYTE ESTERASE ,URINE Negative (NEGATIVE); NITRITE, URINE Negative (NEGATIVE); PROTEIN,URINE Negative (NEGATIVE); UGLUCOSE Negative (NEGATIVE); UROBILINOGEN,URINE 0.2 EU/dL (0.2)
[2020-06-30 03:12] LABS: BASOPHILS # (AUTO) 0.1 /CMM (0.0-0.2); BASOPHILS % (AUTO) 1.3 % (0.0-2.0); EOSINOPHILS % (AUTO) 0.2 % (0.0-6.0); HEMATOCRIT 47 % (39-51); HEMOGLOBIN 15.6 g/dL (13.5-17.5); LYMPHOCYTES # (AUTO) 1.8 /CMM (0.8-4.8); MEAN CORPUSCULAR HGB CONC 33 g/dl (31.0-36.0); MEAN CORPUSCULAR VOLUME 98 fL (80-96); MONOCYTES # (AUTO) 0.5 /CMM (0.1-1.30); MONOCYTES % (AUTO) 6.2 % (2.0-12.0); NEUTROPHILS % (AUTO) 68.3 % (43.0-81.0); PLATELET COUNT (AUTO) 348 /CMM (150-450); RED BLOOD CELL COUNT(AUTO) 4.83 MIL/uL (4.5-6.0); WHITE BLOOD COUNT (AUTO) 7.4 K/uL (4.3-11.0)
[2020-06-30 03:18] LABS: CALCIUM, SERUM 9.3 mg/dL (8.5-10.1); CARBON DIOXIDE 30 mmol/L (21-32); CHLORIDE 97 mmol/L (98-107); CREATININE 0.9 mg/dL (0.6-1.3); GLUCOSE 92 mg/dL (74-106); SODIUM SERUM 135 mmol/L (136-145); UREA NITROGEN, BLOOD 15 mg/dL (7-18)
[2020-06-30 03:31] LABS: ALANINE AMINOTRANSFERASE 97 U/L (12-78); ALBUMIN 4.1 g/dL (3.4-5.0); ALCOHOL, BLOOD < 3 mg/dL (0-0); ALKALINE PHOSPHATASE 77 U/L (46-116); ASPARTATE AMINOTRANSFERASE 53 U/L (15-37); BILIRUBIN,DIRECT 0.2 mg/dL (0.0-0.2); BILIRUBIN,TOTAL 0.4 mg/dL (0.2-1.0); TOTAL PROTEIN, SERUM 8.4 g/dL (6.4-8.2)
[2020-06-30 03:36] LABS: ACETAMINOPHEN < 10 ug/ml (10-30)
--- NOTE | 2020-06-30 05:30 | NUR ---
Facesheet and clinicals faxed to Zulema Nieto.
--- NOTE | 2020-06-30 06:46 | NUR ---
PT REMAINS IN BED, ON MONITOR, AND PULSE OX. VSS.
--- NOTE | 2020-06-30 10:27 | NUR ---
PT ACCEPTED IN [facility] ACCEPTING MD IS KANCHAN. CALL [phone] FOR REPORT. VLADIMIR
--- NOTE | 2020-06-30 10:32 | NUR ---
CALLED [id number] [phone] [id number]
--- NOTE | 2020-06-30 12:05 | NUR ---
report given to geraldo MAYO for hua
[2020-06-30] MEDS ORDERED: ASPIRIN 81 MG TAB.CHEW ONE (12:08)
[2020-06-30] MEDS ORDERED: ASPIRIN 81 MG TAB.CHEW PO ONE (12:30)
[2020-06-30 13:52] VITALS: BP 138/71
--- NOTE | 2020-06-30 13:53 | NUR ---
discharge patient via gurney accompanied by 2 emt in no distress going to [facility]. Denies any pain at this time.
== END 2020-06-30 13:53 ==
LOC: ER 02:44
DX: R45.851 Suicidal ideations (principal); F25.9 Schizoaffective disorder, unspecified; F15.90 Other stimulant use, unspecified, uncomplicated; I10 Essential (primary) hypertension; Z20.828 Contact with and (suspected) exposure to other viral communicable diseases; N40.0 Benign prostatic hyperplasia without lower urinary tract symptoms
CPT/HCPCS: 36415; 80048; 80076; 80299; 80307; 80320; 81001; 85025; 87426; 99285; C9803; G0480

== ENCOUNTER 2020-07-07 02:53 | Emergency (ER) | payer OTHER ==
[~2020-07-07] VITALS: Ht 182.9 cm; Wt 90.7 kg
--- NOTE | 2020-07-07 03:07 | NUR ---
BIBRA 39 FOR C/O HEARING VOICES , DENIED SI, HI. REMAINED CALM DURING TRIAGE AND ASSESSMENT. PT WAS PLACED ON A MONITOR. VSS . DENIED ANY PAIN OR DISCOMFORT. SI PRECAUTION IMPLEMENTED. WILL CONT TO MONITOR ,
[2020-07-07 03:20] LABS: BASOPHILS # (AUTO) 0.1 /CMM (0.0-0.2); BASOPHILS % (AUTO) 0.8 % (0.0-2.0); HEMATOCRIT 46 % (39-51); LYMPHOCYTES # (AUTO) 1.3 /CMM (0.8-4.8); LYMPHOCYTES % (AUTO) 12.8 % (20.0-44.0); MEAN CORPUSCULAR HGB CONC 33 g/dl (31.0-36.0); MEAN CORPUSCULAR VOLUME 95 fL (80-96); MONOCYTES # (AUTO) 0.7 /CMM (0.1-1.30); MONOCYTES % (AUTO) 6.9 % (2.0-12.0); NEUTROPHILS # (AUTO) 8.3 /CMM (1.8-8.9); NEUTROPHILS % (AUTO) 79.5 % (43.0-81.0); PLATELET COUNT (AUTO) 347 /CMM (150-450); RED BLOOD CELL COUNT(AUTO) 4.79 MIL/uL (4.5-6.0); WHITE BLOOD COUNT (AUTO) 10.4 K/uL (4.3-11.0)
[2020-07-07] MEDS ORDERED: OLANZAPINE 5 MG TABLET ONE (03:28)
[2020-07-07 03:30] LABS: ALANINE AMINOTRANSFERASE 65 U/L (12-78); ALBUMIN 4.3 g/dL (3.4-5.0); ALCOHOL, BLOOD < 3 mg/dL (0-0); ALKALINE PHOSPHATASE 74 U/L (46-116); ASPARTATE AMINOTRANSFERASE 36 U/L (15-37); BILIRUBIN,DIRECT 0.1 mg/dL (0.0-0.2); BILIRUBIN,TOTAL 0.3 mg/dL (0.2-1.0); CALCIUM, SERUM 9.3 mg/dL (8.5-10.1); CARBON DIOXIDE 28 mmol/L (21-32); CHLORIDE 99 mmol/L (98-107); CREATININE 1.2 mg/dL (0.6-1.3); GLUCOSE 112 mg/dL (74-106); POTASSIUM 4.1 mmol/L (3.5-5.1); SODIUM SERUM 137 mmol/L (136-145); TOTAL PROTEIN, SERUM 8.3 g/dL (6.4-8.2)
[2020-07-07] MEDS ORDERED: OLANZAPINE 5 MG TABLET PO ONE (03:30)
[2020-07-07 03:42] LABS: ACETAMINOPHEN < 10 ug/ml (10-30); UREA NITROGEN, BLOOD 14 mg/dL (7-18)
--- NOTE | 2020-07-07 06:10 | NUR ---
UPON DISCHARGE PT NOW C/O SUICIDAL IDEATION WITH PLAN TO JUMP OFF A BRIDGE. AWARE
--- NOTE | 2020-07-07 06:13 | NUR ---
URINE COLLECTED, SENT TO LAB.
--- NOTE | 2020-07-07 06:13 | NUR ---
CALLED LAB FOR COVID SWAB.
[2020-07-07 06:20] LABS: BILIRUBIN,URINE Negative (NEGATIVE); BLOOD, URINE Negative Ery/uL (NEGATIVE); COLOR,URINE YELLOW (YELLOW); LEUKOCYTE ESTERASE ,URINE Negative (NEGATIVE); NITRITE, URINE Negative (NEGATIVE); PROTEIN,URINE Negative (NEGATIVE); UGLUCOSE Negative (NEGATIVE); UROBILINOGEN,URINE 0.2 EU/dL (0.2)
--- NOTE | 2020-07-07 06:25 | NUR ---
ALEXEYID SWABBED, SENT TO LAB.
--- NOTE | 2020-07-07 07:12 | NUR ---
CLINICAL INFORMATION FAXED TO [facility]
--- NOTE | 2020-07-07 08:13 | NUR ---
report given to chance keys [phone] at [facility] for hua. pt will be going to unit 1. pt will be under ml butler (psych) and dr. gomez.
--- NOTE | 2020-07-07 08:37 | NUR ---
CALLED [id number] TALKED WITH [facility] RESERVATION NUMBER IS [phone]
--- NOTE | 2020-07-07 08:46 | NUR ---
ETA IS 30 MINS [facility]
--- NOTE | 2020-07-07 10:00 | NUR ---
Patient discharged to home in stable condition. Written and verbal after care instructions given. Patient verbalizes understanding of instruction.
[2020-07-07 10:36] VITALS: BP 142/85
== END 2020-07-07 10:36 ==
LOC: ER 02:54
DX: F23 Brief psychotic disorder (principal); R45.851 Suicidal ideations; F25.9 Schizoaffective disorder, unspecified; Z20.828 Contact with and (suspected) exposure to other viral communicable diseases; I10 Essential (primary) hypertension; N40.0 Benign prostatic hyperplasia without lower urinary tract symptoms
CPT/HCPCS: 36415; 80048; 80076; 80299; 80307; 80320; 81001; 85025; 87426; 99285; C9803; G0480

== ENCOUNTER 2020-07-07 13:30 | Emergency (ER) | payer OTHER ==
[~2020-07-07] VITALS: Ht 185.4 cm; Wt 93.0 kg
[2020-07-07 14:23] VITALS: BP 186/104
[2020-07-07] MEDS ORDERED: IV NS 0.9% 1,000 ML BAG IV ONE (14:30)
--- NOTE | 2020-07-07 14:42 | NUR ---
SOUMYA FROM [facility] TO ER BED 5. AAOX4. NOT IN RESP DISTRESS, BREATHING EVEN AND UNLABORED. PT CAME IN FOR "I FEEL MY PROSTATES IS ABOUT TO POP" WHEN ASKED THE PT EXPLAIN. PT SAYS THAT HE FEELS THIS NUMBNESS ON HIS ABDOMEN. DENIES ANY NAUSEA AND VOMMITING. PAIN IS INTERMITENT IN NATURE. WAS AT THE BEDSIDE FOR EVAL. ORDERS RECEIVED, NOTED AND CARRIED OUT. IV LINE ESTABLISHED ON RFA 18G. BLOOD DRAWN AND GIVEN TO SMALL APPLIANCE ASSEMBLY SUPERVISOR.
[2020-07-07 14:48] LABS: BASOPHILS # (AUTO) 0.1 /CMM (0.0-0.2); BASOPHILS % (AUTO) 0.6 % (0.0-2.0); EOSINOPHILS % (AUTO) 0.2 % (0.0-6.0); HEMATOCRIT 45 % (39-51); LYMPHOCYTES # (AUTO) 1.7 /CMM (0.8-4.8); MEAN CORPUSCULAR HGB CONC 34 g/dl (31.0-36.0); MEAN CORPUSCULAR VOLUME 96 fL (80-96); MONOCYTES # (AUTO) 0.7 /CMM (0.1-1.30); NEUTROPHILS # (AUTO) 6.4 /CMM (1.8-8.9); NEUTROPHILS % (AUTO) 72.2 % (43.0-81.0); PLATELET COUNT (AUTO) 343 /CMM (150-450); RED BLOOD CELL COUNT(AUTO) 4.67 MIL/uL (4.5-6.0); WHITE BLOOD COUNT (AUTO) 8.9 K/uL (4.3-11.0)
[2020-07-07] MEDS ORDERED: OLANZAPINE 5 MG TABLET ONE (14:58)
[2020-07-07] MEDS ORDERED: OLANZAPINE ZYDIS 5 MG TAB.RAPDIS PO ONE (15:00)
[2020-07-07 15:15] LABS: CALCIUM, SERUM 9.2 mg/dL (8.5-10.1); CARBON DIOXIDE 26 mmol/L (21-32); CHLORIDE 102 mmol/L (98-107); GLUCOSE 105 mg/dL (74-106); SODIUM SERUM 138 mmol/L (136-145); UREA NITROGEN, BLOOD 14 mg/dL (7-18)
--- NOTE | 2020-07-07 15:20 | NUR ---
Patient does not wish to proceed with medical care recommended by Vinay Ramirez. Patient given information related to possible complications, up to and including , which could occur as a result of leaving the hospital at this time. Patient verbalizes understanding of risks involved due to leaving against medical advice. Patient has signed AMA form.
[2020-07-07 15:23] LABS: ALANINE AMINOTRANSFERASE 69 U/L (12-78); ALBUMIN 4.1 g/dL (3.4-5.0); ALKALINE PHOSPHATASE 75 U/L (46-116); ASPARTATE AMINOTRANSFERASE 56 U/L (15-37); BILIRUBIN,DIRECT 0.2 mg/dL (0.0-0.2); BILIRUBIN,TOTAL 0.7 mg/dL (0.2-1.0)
== END 2020-07-07 15:21 | disposition left against medical advice (07) ==
LOC: ER 13:33
DX: F29 Unspecified psychosis not due to a substance or known physiological condition (principal); R00.0 Tachycardia, unspecified; I10 Essential (primary) hypertension; F25.9 Schizoaffective disorder, unspecified; Z98.890 Other specified postprocedural states
CPT/HCPCS: 36415; 71045-TC; 80048-TC; 80076-TC; 83605-TC; 84484-TC; 85025-TC; 85730-TC; 87040-TC

== ENCOUNTER 2020-08-02 01:21 | Emergency (ER) | payer OTHER ==
[~2020-08-02] VITALS: Ht 182.9 cm; Wt 90.7 kg
[2020-08-02 01:30] VITALS: BP 121/61
== END 2020-08-02 03:04 | disposition home or self-care (01) ==
LOC: ER 01:21
DX: B35.3 Tinea pedis (principal); B86 Scabies; I10 Essential (primary) hypertension; Z98.890 Other specified postprocedural states

== ENCOUNTER 2020-09-10 22:53 | Emergency (ER) | payer OTHER ==
[~2020-09-10] VITALS: Ht 182.9 cm; Wt 86.2 kg
[2020-09-11 00:21] LABS: BASOPHILS # (AUTO) 0.1 /CMM (0.0-0.2); BASOPHILS % (AUTO) 1.1 % (0.0-2.0); EOSINOPHILS % (AUTO) 0.2 % (0.0-6.0); HEMATOCRIT 42 % (39-51); HEMOGLOBIN 14.1 g/dL (13.5-17.5); LYMPHOCYTES # (AUTO) 1.8 /CMM (0.8-4.8); LYMPHOCYTES % (AUTO) 32.8 % (20.0-44.0); MEAN CORPUSCULAR HGB CONC 33 g/dl (31.0-36.0); MEAN CORPUSCULAR VOLUME 95 fL (80-96); MONOCYTES # (AUTO) 0.3 /CMM (0.1-1.30); NEUTROPHILS # (AUTO) 3.3 /CMM (1.8-8.9); NEUTROPHILS % (AUTO) 59.9 % (43.0-81.0); PLATELET COUNT (AUTO) 340 /CMM (150-450); RED BLOOD CELL COUNT(AUTO) 4.45 MIL/uL (4.5-6.0); WHITE BLOOD COUNT (AUTO) 5.5 K/uL (4.3-11.0)
[2020-09-11 01:06] LABS: ALANINE AMINOTRANSFERASE 56 U/L (12-78); ALCOHOL, BLOOD 18 mg/dL (0-0); ALKALINE PHOSPHATASE 75 U/L (46-116); ASPARTATE AMINOTRANSFERASE 36 U/L (15-37); BILIRUBIN,DIRECT 0.2 mg/dL (0.0-0.2); BILIRUBIN,TOTAL 0.4 mg/dL (0.2-1.0); CARBON DIOXIDE 29 mmol/L (21-32); CHLORIDE 102 mmol/L (98-107); GLUCOSE 90 mg/dL (74-106); POTASSIUM 3.8 mmol/L (3.5-5.1); SODIUM SERUM 139 mmol/L (136-145); TOTAL PROTEIN, SERUM 7.7 g/dL (6.4-8.2); UREA NITROGEN, BLOOD 14 mg/dL (7-18)
[2020-09-11 01:09] LABS: ACETAMINOPHEN < 2 ug/ml (10-30)
[2020-09-11 01:26] LABS: BILIRUBIN,URINE NEGATIVE (NEGATIVE); COLOR,URINE YELLOW (YELLOW); LEUKOCYTE ESTERASE ,URINE NEGATIVE (NEGATIVE); NITRITE, URINE NEGATIVE (NEGATIVE); PROTEIN,URINE NEGATIVE (NEGATIVE); UGLUCOSE NEGATIVE (NEGATIVE); UROBILINOGEN,URINE 0.2 EU/dL (0.2)
[2020-09-11 04:36] VITALS: BP 118/96
== END 2020-09-11 05:02 ==
LOC: ER 22:59
DX: R45.851 Suicidal ideations (principal); F25.9 Schizoaffective disorder, unspecified; N40.0 Benign prostatic hyperplasia without lower urinary tract symptoms; I10 Essential (primary) hypertension; Z20.822 Contact with and (suspected) exposure to COVID-19
CPT/HCPCS: 36415; 80048; 80076; 80299; 80307; 80320; 81003; 85025; 87426; 99285; C9803; G0480

== ENCOUNTER 2020-10-08 13:53 | Emergency (ER) | payer OTHER ==
[~2020-10-08] VITALS: Ht 177.8 cm; Wt 74.8 kg
--- NOTE | 2020-10-08 13:53 | NUR ---
PT BIB SELF C/O DEPRESSION. DENIES SI. REQUESTING ADMISSION TO [facility]. PT IS AAOX4, NOT IN RESPIRATORY DISTRESS, V/S STABLE, KEPT RESTED AND COMFORTABLE. WILL CONTINUE TO MONITOR.
--- NOTE | 2020-10-08 14:30 | NUR ---
URINE SPECIMEN COLLECTED AND SENT TO LAB.
--- NOTE | 2020-10-08 14:44 | NUR ---
PT SEEN AND EXAMINED BY .
--- NOTE | 2020-10-08 15:10 | NUR ---
COVID SPECIMEN OBTAINED AND SENT TO LAB.
[2020-10-08 15:12] LABS: BILIRUBIN,URINE Negative (NEGATIVE); COLOR,URINE YELLOW (YELLOW); LEUKOCYTE ESTERASE ,URINE Negative (NEGATIVE); NITRITE, URINE Negative (NEGATIVE); PROTEIN,URINE Negative (NEGATIVE); UGLUCOSE Negative (NEGATIVE)
--- NOTE | 2020-10-08 15:12 | NUR ---
ER PHLEB AT BEDSIDE FOR BLOOD DRAW.
[2020-10-08 15:24] LABS: BASOPHILS # (AUTO) 0.1 /CMM (0.0-0.2); BASOPHILS % (AUTO) 1.6 % (0.0-2.0); EOSINOPHILS % (AUTO) 1.5 % (0.0-6.0); HEMATOCRIT 42 % (39-51); HEMOGLOBIN 14.1 g/dL (13.5-17.5); LYMPHOCYTES # (AUTO) 1.7 /CMM (0.8-4.8); LYMPHOCYTES % (AUTO) 29.5 % (20.0-44.0); MEAN CORPUSCULAR HGB CONC 34 g/dl (31.0-36.0); MEAN CORPUSCULAR VOLUME 95 fL (80-96); MONOCYTES # (AUTO) 0.4 /CMM (0.1-1.30); MONOCYTES % (AUTO) 6.8 % (2.0-12.0); NEUTROPHILS # (AUTO) 3.4 /CMM (1.8-8.9); NEUTROPHILS % (AUTO) 60.6 % (43.0-81.0); PLATELET COUNT (AUTO) 324 /CMM (150-450); RED BLOOD CELL COUNT(AUTO) 4.35 MIL/uL (4.5-6.0); WHITE BLOOD COUNT (AUTO) 5.6 K/uL (4.3-11.0)
[2020-10-08 15:40] LABS: CALCIUM, SERUM 8.6 mg/dL (8.5-10.1); CARBON DIOXIDE 27 mmol/L (21-32); CHLORIDE 101 mmol/L (98-107); GLUCOSE 119 mg/dL (74-106); POTASSIUM 3.8 mmol/L (3.5-5.1); SODIUM SERUM 137 mmol/L (136-145); UREA NITROGEN, BLOOD 13 mg/dL (7-18)
[2020-10-08 15:46] LABS: ALANINE AMINOTRANSFERASE 53 U/L (12-78); ALBUMIN 3.7 g/dL (3.4-5.0); ALCOHOL, BLOOD < 3 mg/dL (0-0); ALKALINE PHOSPHATASE 71 U/L (46-116); ASPARTATE AMINOTRANSFERASE 39 U/L (15-37); BILIRUBIN,DIRECT 0.1 mg/dL (0.0-0.2); BILIRUBIN,TOTAL 0.5 mg/dL (0.2-1.0); TOTAL PROTEIN, SERUM 7.2 g/dL (6.4-8.2)
[2020-10-08 15:47] LABS: ACETAMINOPHEN < 0 ug/ml (10-30)
--- NOTE | 2020-10-08 18:01 | NUR ---
CALLED [facility] TO FOLLOW UP WITH PACKET. PER MEL, STILL WAITING ON DISCHARGES. NO OTHER UPDATES AT THIS TIME.
--- NOTE | 2020-10-08 21:40 | NUR ---
ACCEPTING INFO: PT ACCEPTED AT [facility] ACCEPTING MD SALEEM PHONE NUMBER FOR REPORT EXT [phone]
--- NOTE | 2020-10-08 22:28 | NUR ---
[id number] RES# [id number], ETA TO FOLLOW
--- NOTE | 2020-10-08 23:01 | NUR ---
[facility] ETA [phone]
[2020-10-08 23:13] VITALS: BP 132/85
--- NOTE | 2020-10-08 23:21 | NUR ---
REPORT GIVEN TO HEMANTH RN FOR ALEX
--- NOTE | 2020-10-08 23:51 | NUR ---
[facility] #[facility] AT BEDSIDE FOR PT [facility] PT IS BEING TRANSPORTED ON [facility] WITH 2 EMT. PT IS IN STABLE CONDITION FOR TRANSPORT
== END 2020-10-08 23:54 ==
LOC: ER 14:19
DX: F25.9 Schizoaffective disorder, unspecified (principal); R45.851 Suicidal ideations; F19.10 Other psychoactive substance abuse, uncomplicated; N40.0 Benign prostatic hyperplasia without lower urinary tract symptoms; I10 Essential (primary) hypertension; Z20.822 Contact with and (suspected) exposure to COVID-19
CPT/HCPCS: 36415; 80048; 80076; 80299; 80307; 80320; 81003; 85025; 87426; 99285; C9803; G0480

== ENCOUNTER 2020-11-25 02:18 | Emergency (ER) | payer OTHER ==
[~2020-11-25] VITALS: Ht 185.4 cm; Wt 93.0 kg
--- NOTE | 2020-11-25 05:01 | NUR ---
PT CALLED TO TRIAGE NOT IN WAITING ROOM
[2020-11-25 05:41] VITALS: BP 131/72
== END 2020-11-25 06:24 | disposition home or self-care (01) ==
LOC: ER 02:21
DX: T14.8XXA Other injury of unspecified body region, initial encounter (principal); I10 Essential (primary) hypertension; N40.0 Benign prostatic hyperplasia without lower urinary tract symptoms; F25.9 Schizoaffective disorder, unspecified; Z98.890 Other specified postprocedural states; W57.XXXA Bitten or stung by nonvenomous insect and other nonvenomous arthropods, initial encounter; Y93.89 Activity, other specified; Y92.89 Other specified places as the place of occurrence of the external cause; Y99.8 Other external cause status

== ENCOUNTER 2020-12-10 09:40 | Emergency (ER) | payer OTHER ==
[~2020-12-10] VITALS: Ht 172.7 cm; Wt 93.0 kg
--- NOTE | 2020-12-10 09:45 | NUR ---
IENIE810/PD PER EMS, PT CALLED 911 ASKING FOR "HELP" ACTING BIZZARE AND PARANOID. DENIES PAIN. IN ROOM AIR AND DENIES SOB. RESPIRATION REGULAR AND UNLABORED. WILL CONTINUE TO MONITOR THE PATIENT.
[2020-12-10] MEDS ORDERED: OLANZAPINE 5 MG TABLET PO ONE (10:00)
[2020-12-10] MEDS ORDERED: LORAZEPAM 1 MG TABLET PO ONE (10:00)
[2020-12-10] MEDS ORDERED: OLANZAPINE 5 MG TABLET ONE (10:04)
[2020-12-10] MEDS ORDERED: LORAZEPAM 1 MG TABLET ONE (10:04)
[2020-12-10] MEDS ORDERED: OLANZAPINE 10 MG VIAL IM ONE ×2 (10:21→10:30)
[2020-12-10] MEDS ORDERED: diphenhydrAMINE HCL 50 MG/ML VIAL ONE (10:21)
[2020-12-10] MEDS ORDERED: LORAZEPAM INJ 2 MG/ML VIAL ONE (10:22)
[2020-12-10] MEDS ORDERED: LORAZEPAM INJ 2 MG/ML VIAL IM ONE (10:30)
[2020-12-10] MEDS ORDERED: diphenhydrAMINE HCL 50 MG/ML VIAL IM ONE (10:30)
[2020-12-10 10:55] LABS: BASOPHILS % (AUTO) 0.7 % (0.0-2.0); EOSINOPHILS % (AUTO) 0.4 % (0.0-6.0); HEMATOCRIT 43 % (39-51); HEMOGLOBIN 14.3 g/dL (13.5-17.5); LYMPHOCYTES % (AUTO) 16.1 % (20.0-44.0); MEAN CORPUSCULAR HGB CONC 33 g/dl (31.0-36.0); MEAN CORPUSCULAR VOLUME 96 fL (80-96); MONOCYTES # (AUTO) 0.4 /CMM (0.1-1.30); MONOCYTES % (AUTO) 6.9 % (2.0-12.0); NEUTROPHILS # (AUTO) 4.6 /CMM (1.8-8.9); NEUTROPHILS % (AUTO) 75.9 % (43.0-81.0); PLATELET COUNT (AUTO) 330 /CMM (150-450); RED BLOOD CELL COUNT(AUTO) 4.51 MIL/uL (4.5-6.0); WHITE BLOOD COUNT (AUTO) 6.1 K/uL (4.3-11.0)
[2020-12-10 11:12] LABS: ALANINE AMINOTRANSFERASE 71 U/L (12-78); ALBUMIN 4.3 g/dL (3.4-5.0); ALCOHOL, BLOOD < 3 mg/dL (0-0); ALKALINE PHOSPHATASE 70 U/L (46-116); ASPARTATE AMINOTRANSFERASE 58 U/L (15-37); BILIRUBIN,DIRECT 0.1 mg/dL (0.0-0.2); BILIRUBIN,TOTAL 0.5 mg/dL (0.2-1.0); CALCIUM, SERUM 9.2 mg/dL (8.5-10.1); CARBON DIOXIDE 25 mmol/L (21-32); CHLORIDE 105 mmol/L (98-107); CREATININE 1.1 mg/dL (0.6-1.3); GLUCOSE 113 mg/dL (74-106); SODIUM SERUM 143 mmol/L (136-145); TOTAL PROTEIN, SERUM 7.9 g/dL (6.4-8.2); UREA NITROGEN, BLOOD 22 mg/dL (7-18)
[2020-12-10 11:13] LABS: ACETAMINOPHEN 0 ug/ml (10-30)
--- NOTE | 2020-12-10 11:53 | NUR ---
URINE COLLECTED AND SENT TO THE LAB
--- NOTE | 2020-12-10 11:55 | NUR ---
URINE COLLECTED AND SENT TO THE LAB
[2020-12-10 12:32] LABS: BILIRUBIN,URINE Negative (NEGATIVE); COLOR,URINE YELLOW (YELLOW); LEUKOCYTE ESTERASE ,URINE Negative (NEGATIVE); NITRITE, URINE Negative (NEGATIVE); PROTEIN,URINE 30 mg/dl (NEGATIVE); UGLUCOSE Negative (NEGATIVE); UROBILINOGEN,URINE 0.2 EU/dL (0.2)
[2020-12-10 12:59] LABS: RBC,URINE NONE SEEN /HPF (0-2)
[2020-12-10 13:00] LABS: BACTERIA,URINE Few /HPF (None Seen); SPERM,URINE Few /HPF (None Seen); SQUAMOUS EPITHELIAL CELL,UR Rare /HPF (None Seen); WBC,URINE 0-3 /HPF (0-3)
[2020-12-10 13:01] LABS: URINE AMORPHOUS URATE Few /HPF (None Seen)
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
--- NOTE | 2020-12-10 17:36 | NUR ---
PT APPEARS MORE CALM. STABLE VITALS. PT RPOVIDED W. MEAL TRAY
--- NOTE | 2020-12-10 19:03 | NUR ---
CALLED LEXA [phone] FOR EVAL. [facility].
--- NOTE | 2020-12-10 20:18 | NUR ---
COVID SWAB TO LAB
--- NOTE | 2020-12-10 20:46 | NUR ---
PT WANDERING AROUND, WANTING TO LEAVE. PT DENIES SI/HI. PT STATES "[facility] PT MADE AWARE THAT TANJA MANAGER OF SCHOOL IS TRYING TO SEE IF THEY HAVE A BED AT [facility] FOR VOLUNTARY ADMISSION. PT AGREED TO GO BACK TO BED. PT CALM AND COOPERATIEV AT THIS TIME.
--- NOTE | 2020-12-10 21:09 | NUR ---
CLINICAL AND FACESHEET FAXED TO [facility] INTAKE FOR VOLUNTARY PSYCH ADMISSION.
--- NOTE | 2020-12-10 21:11 | NUR ---
LAB CALLED REGARDING NEGATIVE COVID RESULT.
--- NOTE | 2020-12-10 22:34 | NUR ---
PT UPDATED THAT WE ARE STILL WAITING TO HEAR FROM [facility] OR [facility]. PT DENIES ANY COMPLAINTS AT THIS TIME AND WILLING TO WAIT FOR TRANSFER.
--- NOTE | 2020-12-10 23:28 | NUR ---
TRANSFER INFORMATION: PT ACCEPT[facility] AT [facility] JIMENA SILVA ACCEPTING MD RHODES PT WILL GO TO UNIT 2 PHONE # FOR REPORT
--- NOTE | 2020-12-11 00:38 | NUR ---
[facility] AND WANTS TO LEAVE. PT DENIES SI/HI. PT STATES "I GOT IMPORTANT BUSINESS TO DO AND I REALLY HAVE AND CHECK ON MY GIRL, I APOLOGIZE FOR ALL THE TROUBLE I HAVE CAUSE YOU SARAH BETH, YOU GUYS DID GREAT."
[2020-12-11 00:48] VITALS: BP 138/67
== END 2020-12-11 00:49 | disposition home or self-care (01) ==
LOC: ER 09:41
DX: F19.10 Other psychoactive substance abuse, uncomplicated (principal); F25.9 Schizoaffective disorder, unspecified; N40.0 Benign prostatic hyperplasia without lower urinary tract symptoms; I10 Essential (primary) hypertension; Z20.822 Contact with and (suspected) exposure to COVID-19; F31.9 Bipolar disorder, unspecified
CPT/HCPCS: 36415; 80048; 80076; 80299; 80307; 80320; 81001; 85025; 87426; 96372 ×2; 99284; C9803; J1200; J2060; J3490; G0480

== ENCOUNTER 2020-12-17 21:08 | Emergency (ER) | payer OTHER ==
[~2020-12-17] VITALS: Ht 172.7 cm; Wt 93.0 kg
[2020-12-17 21:58] LABS: BASOPHILS # (AUTO) 0.1 /CMM (0.0-0.2); BASOPHILS % (AUTO) 0.9 % (0.0-2.0); EOSINOPHILS % (AUTO) 0.7 % (0.0-6.0); HEMATOCRIT 40 % (39-51); LYMPHOCYTES # (AUTO) 1.6 /CMM (0.8-4.8); LYMPHOCYTES % (AUTO) 17.5 % (20.0-44.0); MEAN CORPUSCULAR HGB CONC 33 g/dl (31.0-36.0); MEAN CORPUSCULAR VOLUME 96 fL (80-96); MONOCYTES # (AUTO) 0.6 /CMM (0.1-1.30); MONOCYTES % (AUTO) 7.1 % (2.0-12.0); NEUTROPHILS # (AUTO) 6.7 /CMM (1.8-8.9); NEUTROPHILS % (AUTO) 73.8 % (43.0-81.0); PLATELET COUNT (AUTO) 331 /CMM (150-450); RED BLOOD CELL COUNT(AUTO) 4.15 MIL/uL (4.5-6.0); WHITE BLOOD COUNT (AUTO) 9.1 K/uL (4.3-11.0)
--- NOTE | 2020-12-17 22:06 | NUR ---
Patient discharged to home in stable condition. Written and verbal after care instructions given. Patient verbalizes understanding of instruction.
--- NOTE | 2020-12-17 22:07 | NUR ---
Patient states, "I am gonna go, i'm not suicidal, i'm not homicidal, i'm good". Patient left. notified.
[2020-12-17 22:11] LABS: CALCIUM, SERUM 8.8 mg/dL (8.5-10.1); CARBON DIOXIDE 28 mmol/L (21-32); CHLORIDE 102 mmol/L (98-107); CREATININE 0.9 mg/dL (0.6-1.3); GLUCOSE 96 mg/dL (74-106); SODIUM SERUM 139 mmol/L (136-145); UREA NITROGEN, BLOOD 12 mg/dL (7-18)
[2020-12-17 22:16] LABS: ALANINE AMINOTRANSFERASE 59 U/L (12-78); ALBUMIN 3.7 g/dL (3.4-5.0); ALCOHOL, BLOOD < 3 mg/dL (0-0); ALKALINE PHOSPHATASE 63 U/L (46-116); ASPARTATE AMINOTRANSFERASE 48 U/L (15-37); BILIRUBIN,DIRECT 0.1 mg/dL (0.0-0.2); BILIRUBIN,TOTAL 0.4 mg/dL (0.2-1.0); TOTAL PROTEIN, SERUM 7.2 g/dL (6.4-8.2)
[2020-12-17 22:18] LABS: ACETAMINOPHEN < 2 ug/ml (10-30)
[2020-12-17 22:25] LABS: BILIRUBIN,URINE NEGATIVE (NEGATIVE); COLOR,URINE YELLOW (YELLOW); LEUKOCYTE ESTERASE ,URINE NEGATIVE (NEGATIVE); NITRITE, URINE NEGATIVE (NEGATIVE); PH,URINE 7.5 (5.0-8.0); PROTEIN,URINE NEGATIVE (NEGATIVE); UGLUCOSE NEGATIVE (NEGATIVE); UROBILINOGEN,URINE 0.2 EU/dL (0.2)
[2020-12-17 23:59] VITALS: BP 122/76
== END 2020-12-17 22:17 | disposition home or self-care (01) ==
LOC: ER 21:08
DX: F29 Unspecified psychosis not due to a substance or known physiological condition (principal); R07.89 Other chest pain; F19.10 Other psychoactive substance abuse, uncomplicated; F25.9 Schizoaffective disorder, unspecified; I10 Essential (primary) hypertension; F31.9 Bipolar disorder, unspecified; R00.0 Tachycardia, unspecified; Z98.890 Other specified postprocedural states
CPT/HCPCS: 36415; 71045-TC; 80048-TC; 80076-TC; 84484-TC; 85025-TC; G0480

== ENCOUNTER 2020-12-18 17:54 | Emergency (ER) | payer OTHER ==
[~2020-12-18] VITALS: Ht 172.7 cm; Wt 93.4 kg
[2020-12-18 18:23] VITALS: BP 133/76
--- NOTE | 2020-12-18 18:59 | NUR ---
HE IS NOT HOMELESS ACCORDING TO HIM
--- NOTE | 2020-12-18 18:59 | NUR ---
FOUND HIS MEDS IN LOCKER AND GIVEN TO HIM
[2020-12-19] MEDS ORDERED: OLAN5TAB3 PO (01:44)
== END 2020-12-18 19:01 | disposition home or self-care (01) ==
LOC: ER 17:57
DX: F29 Unspecified psychosis not due to a substance or known physiological condition (principal); I10 Essential (primary) hypertension; F31.9 Bipolar disorder, unspecified; F25.9 Schizoaffective disorder, unspecified; F17.200 Nicotine dependence, unspecified, uncomplicated; Z98.890 Other specified postprocedural states

== ENCOUNTER 2020-12-19 00:57 | Emergency (ER) | payer OTHER ==
[~2020-12-19] VITALS: Ht 172.7 cm; Wt 93.4 kg
[2020-12-19 00:57] VITALS: BP 141/70
--- NOTE | 2020-12-19 01:34 | NUR ---
MD AT BEDSIDE EXAMINATING PATIENT.
[2020-12-19] MEDS ORDERED: OLAN5TAB3 PO (01:44)
[2020-12-19] MEDS ORDERED: OLANZAPINE 5 MG TABLET ONE (01:52)
[2020-12-19] MEDS ORDERED: diphenhydrAMINE HCL 25 MG CAPSULE ONE (01:52)
[2020-12-19] MEDS ORDERED: OLANZAPINE 5 MG TABLET PO ONE (02:00)
[2020-12-19] MEDS ORDERED: diphenhydrAMINE HCL 25 MG CAPSULE PO ONE (02:00)
--- NOTE | 2020-12-19 02:05 | NUR ---
Patient discharged to home in stable condition. Written and verbal after care instructions given. Patient verbalizes understanding of instruction.
== END 2020-12-19 02:06 | disposition home or self-care (01) ==
LOC: ER 01:00
DX: F22 Delusional disorders (principal); I10 Essential (primary) hypertension; N40.0 Benign prostatic hyperplasia without lower urinary tract symptoms; F25.8 Other schizoaffective disorders; F17.210 Nicotine dependence, cigarettes, uncomplicated; Z98.890 Other specified postprocedural states; Z79.899 Other long term (current) drug therapy
CPT/HCPCS: 99284; Q0163

== ENCOUNTER 2021-01-02 01:39 | Emergency (ER) | payer OTHER ==
[~2021-01-02] VITALS: Ht 172.7 cm; Wt 93.4 kg
[2021-01-02 01:39] VITALS: BP 150/75
[~2021-01-02 01:39] MED LIST: OLAN5TAB3 PO
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
== END 2021-01-02 06:59 | disposition home or self-care (01) ==
LOC: ER 01:43
DX: R45.1 Restlessness and agitation (principal); F41.9 Anxiety disorder, unspecified; I10 Essential (primary) hypertension; N40.0 Benign prostatic hyperplasia without lower urinary tract symptoms; F25.9 Schizoaffective disorder, unspecified; F17.200 Nicotine dependence, unspecified, uncomplicated; Z98.890 Other specified postprocedural states; Z79.899 Other long term (current) drug therapy

== ENCOUNTER 2021-04-24 21:12 | Emergency (ER) | payer OTHER ==
[~2021-04-24] VITALS: Ht 185.4 cm; Wt 86.2 kg
--- NOTE | 2021-04-24 21:39 | NUR ---
CALLED TO TRIAGE, NO ANSWER.
[2021-04-24 21:49] VITALS: BP 134/77
--- NOTE | 2021-04-24 21:52 | NUR ---
CALLED TO TRIAGE, NO ANSWER
[2021-04-24 22:30] LABS: BASOPHILS % (AUTO) 0.9 % (0.0-2.0); EOSINOPHILS % (AUTO) 4.1 % (0.0-6.0); HEMATOCRIT 42 % (39-51); HEMOGLOBIN 13.9 g/dL (13.5-17.5); LYMPHOCYTES # (AUTO) 2.4 K/uL (0.8-4.8); LYMPHOCYTES % (AUTO) 45.4 % (20.0-44.0); MEAN CORPUSCULAR HGB CONC 33 g/dl (31.0-36.0); MEAN CORPUSCULAR VOLUME 95 fL (80-96); MONOCYTES # (AUTO) 0.5 K/uL (0.1-1.30); MONOCYTES % (AUTO) 9.4 % (2.0-12.0); NEUTROPHILS # (AUTO) 2.1 K/uL (1.8-8.9); NEUTROPHILS % (AUTO) 40.2 % (43.0-81.0); PLATELET COUNT (AUTO) 284 K/uL (150-450); RED BLOOD CELL COUNT(AUTO) 4.42 MIL/uL (4.5-6.0); WHITE BLOOD COUNT (AUTO) 5.2 K/uL (4.3-11.0)
[2021-04-24 22:47] LABS: ALANINE AMINOTRANSFERASE 54 U/L (12-78); ALBUMIN 3.6 g/dL (3.4-5.0); ALKALINE PHOSPHATASE 68 U/L (46-116); ASPARTATE AMINOTRANSFERASE 38 U/L (15-37); BILIRUBIN,DIRECT 0.1 mg/dL (0.0-0.2); BILIRUBIN,TOTAL 0.4 mg/dL (0.2-1.0); CARBON DIOXIDE 25 mmol/L (21-32); CHLORIDE 107 mmol/L (98-107); CREATININE 1.3 mg/dL (0.6-1.3); GLUCOSE 131 mg/dL (74-106); POTASSIUM 3.8 mmol/L (3.5-5.1); SODIUM SERUM 143 mmol/L (136-145); TOTAL PROTEIN, SERUM 7.1 g/dL (6.4-8.2); UREA NITROGEN, BLOOD 17 mg/dL (7-18)
[2021-04-24 22:48] LABS: ACETAMINOPHEN 0 ug/ml (10-30); ALCOHOL, BLOOD < 3 mg/dL (0-0)
[2021-04-24 22:51] LABS: CALCIUM, SERUM 8.2 mg/dL (8.5-10.1)
[2021-04-24 23:22] LABS: BILIRUBIN,URINE NEGATIVE (NEGATIVE); COLOR,URINE YELLOW (YELLOW); LEUKOCYTE ESTERASE ,URINE NEGATIVE (NEGATIVE); NITRITE, URINE NEGATIVE (NEGATIVE); PROTEIN,URINE NEGATIVE (NEGATIVE); UGLUCOSE NEGATIVE (NEGATIVE); UROBILINOGEN,URINE 0.2 EU/dL (0.2)
[2021-04-24 23:43] LABS: BACTERIA,URINE None seen /HPF (None Seen); MUCUS,URINE Few /LPF (None Seen); RBC,URINE 0-2 /HPF (0-2); SQUAMOUS EPITHELIAL CELL,UR Few /HPF (None Seen); WBC,URINE 0-2 /HPF (0-3)
--- NOTE | 2021-04-25 02:32 | NUR ---
FACESHEET AND CLINICALS FAXED TO [facility].
--- NOTE | 2021-04-25 03:30 | NUR ---
PT ACCEPTED TO [facility] UNDER DR. HEMPHILL IN UNIT 2. NUMBER TO GIVE REPORT: [phone]
--- NOTE | 2021-04-25 04:27 | NUR ---
CALLED [facility], ETA [phone]
--- NOTE | 2021-04-25 05:28 | NUR ---
pt elspencer from er. dr pugh notified.
== END 2021-04-25 05:30 | disposition left against medical advice (07) ==
LOC: ER 21:12
DX: R45.851 Suicidal ideations (principal); F19.10 Other psychoactive substance abuse, uncomplicated; Z20.822 Contact with and (suspected) exposure to COVID-19; Z53.20 Procedure and treatment not carried out because of patient's decision for unspecified reasons; F17.200 Nicotine dependence, unspecified, uncomplicated; F25.9 Schizoaffective disorder, unspecified; N40.0 Benign prostatic hyperplasia without lower urinary tract symptoms; I10 Essential (primary) hypertension
CPT/HCPCS: 36415; 80048; 80076; 80143; 80307; 80320; 81001; 85025; 87426; 99285; C9803; G0480

== ENCOUNTER 2021-06-02 20:15 | Emergency (ER) | payer OTHER ==
[~2021-06-02] VITALS: Ht 172.7 cm; Wt 86.2 kg
[2021-06-02 21:30] VITALS: BP 142/75
[2021-06-02] MEDS ORDERED: ACETAMINOPHEN ES 500 MG TABLET ONE (21:51)
[2021-06-02] MEDS ORDERED: ACET-2605 PO (21:52)
[2021-06-02] MEDS ORDERED: ACETAMINOPHEN ES 500 MG TABLET PO ONE (22:00)
== END 2021-06-02 22:00 | disposition home or self-care (01) ==
LOC: ER 20:15
DX: R51.9 Headache, unspecified (principal); I10 Essential (primary) hypertension; N40.0 Benign prostatic hyperplasia without lower urinary tract symptoms; F25.9 Schizoaffective disorder, unspecified; F17.200 Nicotine dependence, unspecified, uncomplicated; Z98.890 Other specified postprocedural states; Z79.899 Other long term (current) drug therapy

== ENCOUNTER 2021-06-03 07:40 | Emergency (ER) | payer OTHER ==
[~2021-06-03] VITALS: Ht 182.9 cm; Wt 88.5 kg
[~2021-06-03 07:40] MED LIST changes: +ACET-2605 PO
--- NOTE | 2021-06-03 08:02 | NUR ---
THE PATIENT IS ALERT AND ORIENTED X4. DENIES PAIN. IN ROOM AIR AND DENIES SOB. RESPIRATION REGULAR AND UNLABORED. WILL CONTINUE TO MONITOR THE PATIENT.
--- NOTE | 2021-06-03 08:18 | NUR ---
TO ER 19 FOR EVAL AND POSSIBLE REFERRAL TO PSYCH REQUESTED
[2021-06-03 08:36] LABS: BASOPHILS # (AUTO) 0.1 K/uL (0.0-0.2); BASOPHILS % (AUTO) 0.6 % (0.0-2.0); EOSINOPHILS % (AUTO) 0.4 % (0.0-6.0); HEMATOCRIT 44 % (39-51); HEMOGLOBIN 14.5 g/dL (13.5-17.5); LYMPHOCYTES # (AUTO) 1.2 K/uL (0.8-4.8); LYMPHOCYTES % (AUTO) 14.9 % (20.0-44.0); MEAN CORPUSCULAR HGB CONC 33 g/dl (31.0-36.0); MEAN CORPUSCULAR VOLUME 95 fL (80-96); MONOCYTES # (AUTO) 0.6 K/uL (0.1-1.30); NEUTROPHILS # (AUTO) 6.3 K/uL (1.8-8.9); NEUTROPHILS % (AUTO) 77.1 % (43.0-81.0); PLATELET COUNT (AUTO) 352 K/uL (150-450); RED BLOOD CELL COUNT(AUTO) 4.65 MIL/uL (4.5-6.0); WHITE BLOOD COUNT (AUTO) 8.2 K/uL (4.3-11.0)
[2021-06-03 08:42] LABS: CALCIUM, SERUM 9.3 mg/dL (8.5-10.1); CARBON DIOXIDE 32 mmol/L (21-32); CHLORIDE 101 mmol/L (98-107); GLUCOSE 114 mg/dL (74-106); POTASSIUM 4.2 mmol/L (3.5-5.1); SODIUM SERUM 137 mmol/L (136-145); UREA NITROGEN, BLOOD 16 mg/dL (7-18)
[2021-06-03 08:48] LABS: ACETAMINOPHEN 0 ug/ml (10-30); ALANINE AMINOTRANSFERASE 77 U/L (12-78); ALBUMIN 4.1 g/dL (3.4-5.0); ALCOHOL, BLOOD < 3 mg/dL (0-0); ALKALINE PHOSPHATASE 77 U/L (46-116); ASPARTATE AMINOTRANSFERASE 46 U/L (15-37); BILIRUBIN,DIRECT 0.1 mg/dL (0.0-0.2); BILIRUBIN,TOTAL 0.5 mg/dL (0.2-1.0); TOTAL PROTEIN, SERUM 8.1 g/dL (6.4-8.2)
--- NOTE | 2021-06-03 09:01 | NUR ---
COVID SWAB DONE AND SENT TO LAB
--- NOTE | 2021-06-03 09:39 | NUR ---
THE PATIENT IS HAVING BREAKFAST. TOLERATES DIET WELL
--- NOTE | 2021-06-03 10:27 | NUR ---
Plan: HENNA referred pt. to [facility] [[address] [place] [address] FAX:[phone]] for inpatient psychiatric treatment.
--- NOTE | 2021-06-03 12:03 | NUR ---
urine collected and sent to the lab
[2021-06-03 12:18] LABS: BILIRUBIN,URINE Negative (NEGATIVE); COLOR,URINE YELLOW (YELLOW); LEUKOCYTE ESTERASE ,URINE Negative (NEGATIVE); NITRITE, URINE Negative (NEGATIVE); PH,URINE 6.5 (5.0-8.0); PROTEIN,URINE Trace mg/dl (NEGATIVE); UGLUCOSE Negative (NEGATIVE); UROBILINOGEN,URINE 0.2 EU/dL (0.2)
[2021-06-03 12:19] LABS: RBC,URINE 0-2 /HPF (0-2); WBC,URINE 0-2 /HPF (0-3)
[2021-06-03 12:20] LABS: BACTERIA,URINE Rare /HPF (None Seen); SQUAMOUS EPITHELIAL CELL,UR Rare /HPF (None Seen)
--- NOTE | 2021-06-03 14:17 | NUR ---
CALLED [facility] AND WAS NOTIFIED THAT THE CLINICALS HAVE BEEN RECIEVED FOR THE PT.
--- NOTE | 2021-06-03 19:11 | NUR ---
REPORT GIVEN TO NURSE MCCARTHY FOR [facility]
[2021-06-03] MEDS ORDERED: ACETAMINOPHEN ES 500 MG TABLET ONE (19:28)
[2021-06-03] MEDS ORDERED: ACETAMINOPHEN ES 500 MG TABLET PO ONE (19:30)
--- NOTE | 2021-06-04 01:04 | NUR ---
PATIENT IS ACCEPTED TO [facility], # FOR REPORT: [phone]
--- NOTE | 2021-06-04 01:30 | NUR ---
[facility] ETA 90MINUTES.
--- NOTE | 2021-06-04 01:39 | NUR ---
REPORT GIVEN TO CARSON MAYO AT [facility] FOR [facility].
[2021-06-04 02:25] VITALS: BP 121/69
--- NOTE | 2021-06-04 02:26 | NUR ---
REPORT GIVEN TO TRANSPORT TEAM FOR [facility]LEX. AND TRANSFERRING RESPONSIBILITIES.
== END 2021-06-04 02:36 ==
LOC: ER 07:50
DX: F29 Unspecified psychosis not due to a substance or known physiological condition (principal); R45.851 Suicidal ideations; F19.10 Other psychoactive substance abuse, uncomplicated; R00.0 Tachycardia, unspecified; I10 Essential (primary) hypertension; N40.0 Benign prostatic hyperplasia without lower urinary tract symptoms; F25.9 Schizoaffective disorder, unspecified; Z20.822 Contact with and (suspected) exposure to COVID-19; F17.200 Nicotine dependence, unspecified, uncomplicated; Z82.49 Family history of ischemic heart disease and other diseases of the circulatory system
CPT/HCPCS: 36415; 80048; 80076; 80143; 80307; 80320; 81001; 84484; 85025; 87426; 93005; 99285; C9803; G0480

== ENCOUNTER 2021-07-26 01:55 | Emergency (ER) | payer OTHER ==
[~2021-07-26] VITALS: Ht 182.9 cm; Wt 90.7 kg
--- NOTE | 2021-07-26 02:30 | NUR ---
PT CAME IN C/O HEARING VOICES,BUT HE DOES NOT KNOW WHAT EXACTLY VOICES ARE SAYING, AND ALSO PT STATED HE HAS SI WITH PLAN TO JUMP IN FRONT OF A CAR.PT IS A/OX4.
[2021-07-26] MEDS ORDERED: QUETIAPINE FUMARATE 100 MG TABLET PO STA (02:35)
[2021-07-26 02:37] LABS: BASOPHILS # (AUTO) 0.1 K/uL (0.0-0.2); BASOPHILS % (AUTO) 1.4 % (0.0-2.0); EOSINOPHILS % (AUTO) 3.4 % (0.0-6.0); HEMATOCRIT 43 % (39-51); HEMOGLOBIN 14.5 g/dL (13.5-17.5); LYMPHOCYTES # (AUTO) 1.6 K/uL (0.8-4.8); LYMPHOCYTES % (AUTO) 30.1 % (20.0-44.0); MEAN CORPUSCULAR HGB CONC 34 g/dl (31.0-36.0); MEAN CORPUSCULAR VOLUME 95 fL (80-96); MONOCYTES # (AUTO) 0.3 K/uL (0.1-1.30); MONOCYTES % (AUTO) 6.7 % (2.0-12.0); NEUTROPHILS % (AUTO) 58.4 % (43.0-81.0); PLATELET COUNT (AUTO) 355 K/uL (150-450); RED BLOOD CELL COUNT(AUTO) 4.54 MIL/uL (4.5-6.0); WHITE BLOOD COUNT (AUTO) 5.2 K/uL (4.3-11.0)
[2021-07-26 02:39] LABS: BILIRUBIN,URINE NEGATIVE (NEGATIVE); COLOR,URINE YELLOW (YELLOW); LEUKOCYTE ESTERASE ,URINE NEGATIVE (NEGATIVE); NITRITE, URINE NEGATIVE (NEGATIVE); PH,URINE 5.5 (5.0-8.0); PROTEIN,URINE NEGATIVE (NEGATIVE); UGLUCOSE NEGATIVE (NEGATIVE); UROBILINOGEN,URINE 0.2 EU/dL (0.2)
[2021-07-26 02:53] LABS: ALBUMIN 3.5 g/dL (3.4-5.0); BILIRUBIN,DIRECT 0.1 mg/dL (0.0-0.2); BILIRUBIN,TOTAL 0.3 mg/dL (0.2-1.0); CALCIUM, SERUM 8.7 mg/dL (8.5-10.1); CREATININE 1.1 mg/dL (0.6-1.3); POTASSIUM 4.2 mmol/L (3.5-5.1); TOTAL PROTEIN, SERUM 7.5 g/dL (6.4-8.2)
[2021-07-26] MEDS ORDERED: QUETIAPINE FUMARATE 25 MG TABLET ONE (03:10)
--- NOTE | 2021-07-26 03:29 | NUR ---
CLINICALS FAXED TO [facility] INTAKE
--- NOTE | 2021-07-26 03:43 | NUR ---
BS 67
--- NOTE | 2021-07-26 04:40 | NUR ---
BLOOD SUGAR IS 102.
--- NOTE | 2021-07-26 07:15 | NUR ---
PATIENT RESTING COMFORTABLY IN BED, AROUSABLE, AAOX3
--- NOTE | 2021-07-26 08:00 | NUR ---
PATIENT EATING BREAKFAST
--- NOTE | 2021-07-26 10:41 | NUR ---
"SS Consult: SS consult for suicidal ideation. Pt. Is a 45-year-old male. Pt. demonstrates adequate insight to the reason for hospitalization. Per pt., he was brought to hospital due to suicidal thoughts. Pt. was oriented x3, alert, and cooperative. During interview, pt. was capable of following directions and made appropriate eye-contact. Pt.'s speech was at a low rate. SW explored pt.'s Hx of mental health and substance abuse. Pt. reported no Hx of mental health, or homicidal. Pt. denies auditory hallucinations, visual hallucinations, paranoia, or delusions. Pt. reported having suicidal ideation and substance use [marijuana]. SW explored pt.'s living situation. Per pt., he is homeless. Per pt., he reports having no adequate support. Pt. expressed that he wants to go to [facility]. Clinical reports have been faxed by ED nurses. SW is waiting to hear back from [facility]. Plan: SW provided available homeless resources and pt. accepted. Resources Provided: Winter Shelters: SPA 2 | [facility]: [facility] Address: Confidential (call for location ) Population Served: [place] # of Beds: 57 SPA 4 | [facility] Provider: Home at Last Address: [address] [place] [address] # of Beds: 49 Population Served: Coed [facility] 6 | [facility] Provider: Home at Last Address: [address] [place] [address] # of Beds: 49 Population Served: Coed [facility] Provider: Eran Moore [facility] Address: 2114 [facility] [address] # of Beds: 20 Population Served: Women KAVYA Facility Provider: Home at Last Address: 83[address] [facility] [address] # of Beds: 30 Population Served: Women SPA 8 | [facility] Library Provider: Markus quan Joan Address: 4271 [facility] [address] # of Beds: 65 Population Served: [facility] Year-round shelters: [place] [address] [place], [place] [phone] ; [facility] [place] [address] [place] [address]; [facility] [facility] [address] [facility] [address] Winter Shelters: Kenzie Garcia [place] Provider: Markus of Joan [place] Address: [address]. [place], [address] # of Beds: 47 Population Served: [facility] 6 | [facility] Maricel Blum [place] Provider: Home at Last Address: [address] [place] [address], [address] # of Beds: 66 Population Served: [facility] [place] Provider: First to Serve Address: 17104 [facility], [address] # of Beds: 56 Population Served: [facility] Braden MosherNai [place] Provider: SSG/[facility] Address: 8908 [facility], [address] # of Beds: 49 Population Served: [facility] 8 | [facility] Provider: First to Serve Address: 3535 [facility], [address] # of Beds: 37 Population Served: [facility] Hygiene: [place] [facility]: [address] Tommie Trivedi [place] ; [facility] [address] [facility] ; [facility] 3283 Richard Hubbard . Food Resources: [place] Food [facility] at [facility]- 2813 Juleslora Trivedi [place]; Meet Each Need with Dignity ([facility]) [address] [place]; Community Hospital Food Pantry 7863 [facility]; [facility] 4622 [facility] General Hospitalisabel Royka. Mental Health resources provided: [facility] [address] [place] [address] ; [facility] Mental Health Center, Inc. [address] [place] [facility] [address], [place], [place] [phone] ; [facility] Mental Health Urgent Care Center [address]9079 [place] [address] ; [facility] [address] [place], [place] [address] Healthcare Clinics: [facility] 6551 [facility], [address] [place]. [place] ; [facility] 68[address] [facility] [address] [place] [address]; [facility] 13577 [facility]. [place] [phone] Counseling--Outpatient [facility] 4419 [facility], [place] [address] (Specializes in in-depth psychotherapy for emotional distress: anxiety, depression, interpersonal conflicts, life transitions, childhood abuse) [facility] [address] [place] [address] (Assist with solving problem marital difficulties, separation & divorce, aging parents, & grief, chronic & terminal illness) [facility] [address] [place] [address] (Deal with loss & grief, anxiety, marital difficulties) Homebound/Mental Health Services [address], [address] [place], [place] [address] (Provide in-home mental services to people who are incapable of leaving their homes) Organization for Needs of the Elderly Senior Service/Resource Center [address] [place] [address] [facility] 6514 [facility] Medical Centernanda isabel. [place], [place] [address] PSYCHIATRIC OUTPATIENT SERVICES [facility] Partial Hospitalization and Intensive Outpatient Program (Managed Care and Longs Only)[address] [place] [address]. [facility] [phone] [facility] Partial Hospitalization and Outpatient [address] [place], [place] [phone] RICHARD SILVA [facility] [place] [id number] Donna barbara. [address] [place], [place] [phone] [facility] Campusdominik Partial Hospitalization and Outpatient [id number] Emelita [facility] Richard Silva, [phone] Substance Abuse resources provided included: [facility] Substance Abuse Self-Helpline ([facility]) ; CRI -HELP 41533 [facility]. [place] [address] ; [facility] [place] [address] [facility] [address] ; [facility] Rehabilitation Program 02230 [place] BlvdAdirondack Medical Center [address] ; [facility] 400 NBrattle[facility] [id number] ; [facility] 4940 [facility] [address] ; Krystyna Christianacare 909 [facility] [phone] ; [facility] Substance Abuse Helpline([facility] ; [facility] ; [facility] [place]; Cri-Help [place]; I-ADARP Inter Agency Drug Abuse Recovery Richard dominik; [facility]; [facility] Richards; [facility] [place] [facility] [place]; Alcoholics Anonymous -SFV; Les ; Marijuana Anonymous -SFV; Narcotics Anonymous www.na.org;"
--- NOTE | 2021-07-26 10:50 | NUR ---
PER PT HE FEELS ALOT BETTER AND NOT FEELING SUICIDAL ANYMORE. AWARE.
--- NOTE | 2021-07-26 10:59 | NUR ---
Patient given written and verbal discharge instructions. Patient verbalizes understanding of instructions. Patient is ambulatory with steady gait. Refuses offer of fpc placement. Patient given list of available shelters in surrounding area.
[2021-07-26 11:00] VITALS: BP 117/61
== END 2021-07-26 11:01 | disposition home or self-care (01) ==
LOC: ER 01:55
DX: R45.851 Suicidal ideations (principal); F25.9 Schizoaffective disorder, unspecified; N40.0 Benign prostatic hyperplasia without lower urinary tract symptoms; I10 Essential (primary) hypertension; Z59.01 Sheltered homelessness; F17.200 Nicotine dependence, unspecified, uncomplicated; Z20.822 Contact with and (suspected) exposure to COVID-19; F15.90 Other stimulant use, unspecified, uncomplicated
CPT/HCPCS: 36415; 80048; 80076; 80143; 80307; 80320; 99285; 81003; 85025; 87426; C9803; G0480

== ENCOUNTER 2022-09-09 03:23 | Emergency (ER) | payer MEDICAID ==
[~2022-09-09] VITALS: Ht 182.9 cm; Wt 88.5 kg
[2022-09-09 04:00] VITALS: BP 137/70
--- NOTE | 2022-09-09 04:00 | NUR ---
PATIENT BIBSELF C/O +SI AND WANTS VOL PSYCH ADMIT. PATIENT IS A/O X 4, RR EVEN AND UNLABORED NO SOB NOTED. VSS. PATIENT PLACED IN HOSPITAL GOWN AND BELONGINGS TAKEN. NO ACUTE DISTRESS NOTED, WILL CONTINUE TO MONITOR.
--- NOTE | 2022-09-09 04:10 | NUR ---
SUPERCALENDER OPERATOR AT BEDSIDE
--- NOTE | 2022-09-09 04:15 | NUR ---
COVID SWAB COLLECTED
[2022-09-09 04:33] LABS: BASOPHILS # (AUTO) 0.1 K/uL (0.0-0.2); BASOPHILS % (AUTO) 1.1 % (0.0-2.0); EOSINOPHILS % (AUTO) 2.3 % (0.0-6.0); HEMATOCRIT 41 % (39-51); HEMOGLOBIN 13.6 g/dL (13.5-17.5); LYMPHOCYTES # (AUTO) 2.1 K/uL (0.8-4.8); MEAN CORPUSCULAR HGB CONC 33 g/dl (31.0-36.0); MEAN CORPUSCULAR VOLUME 95 fL (80-96); MONOCYTES # (AUTO) 0.6 K/uL (0.1-1.30); MONOCYTES % (AUTO) 9.4 % (2.0-12.0); NEUTROPHILS # (AUTO) 3.2 K/uL (1.8-8.9); NEUTROPHILS % (AUTO) 53.2 % (43.0-81.0); PLATELET COUNT (AUTO) 322 K/uL (150-450); RED BLOOD CELL COUNT(AUTO) 4.33 MIL/uL (4.5-6.0); WHITE BLOOD COUNT (AUTO) 6.1 K/uL (4.3-11.0)
[2022-09-09 04:44] LABS: CALCIUM, SERUM 8.9 mg/dL (8.5-10.1); CARBON DIOXIDE 29 mmol/L (21-32); CHLORIDE 103 mmol/L (98-107); GLUCOSE 94 mg/dL (74-106); POTASSIUM 3.9 mmol/L (3.5-5.1); SODIUM SERUM 138 mmol/L (136-145); UREA NITROGEN, BLOOD 9 mg/dL (7-18)
[2022-09-09 04:49] LABS: ALANINE AMINOTRANSFERASE 49 U/L (12-78); ALBUMIN 3.9 g/dL (3.4-5.0); ALCOHOL, BLOOD < 3 mg/dL (0-0); ALKALINE PHOSPHATASE 71 U/L (46-116); ASPARTATE AMINOTRANSFERASE 38 U/L (15-37); BILIRUBIN,DIRECT 0.3 mg/dL (0.0-0.2); BILIRUBIN,TOTAL 1.1 mg/dL (0.2-1.0); TOTAL PROTEIN, SERUM 7.2 g/dL (6.4-8.2)
[2022-09-09 05:12] LABS: BILIRUBIN,URINE NEGATIVE (NEGATIVE); COLOR,URINE YELLOW (YELLOW); LEUKOCYTE ESTERASE ,URINE NEGATIVE (NEGATIVE); NITRITE, URINE NEGATIVE (NEGATIVE); PROTEIN,URINE NEGATIVE (NEGATIVE); UGLUCOSE NEGATIVE (NEGATIVE)
[2022-09-09 05:17] LABS: BACTERIA,URINE Rare /HPF (None Seen); RBC,URINE 0-2 /HPF (0-2); SQUAMOUS EPITHELIAL CELL,UR Few /HPF (None Seen); WBC,URINE 0-2 /HPF (0-3)
--- NOTE | 2022-09-09 08:09 | NUR ---
SENT CLINICALS TO [facility] & JUAN ANTONIO.
--- NOTE | 2022-09-09 08:52 | NUR ---
ACCEPTED AT [facility] UNDER DR. CHAPARRO. ETA [phone]
--- NOTE | 2022-09-09 10:37 | NUR ---
TRANSPORTED TO [facility] VIA FACILITY ARCHIVAL RECORDS CLERK. STABLE CONDITION.
== END 2022-09-09 10:38 ==
LOC: ER 03:27
DX: R45.851 Suicidal ideations (principal); F25.9 Schizoaffective disorder, unspecified; I10 Essential (primary) hypertension; N40.0 Benign prostatic hyperplasia without lower urinary tract symptoms; Z79.899 Other long term (current) drug therapy; Z20.822 Contact with and (suspected) exposure to COVID-19
CPT/HCPCS: 99285; 85025; 80048; 80076; 81001; 36415; 87426; 80143; 80320; 80307; C9803; G0480

== ENCOUNTER 2023-11-29 03:41 | Emergency (ER) | payer MEDICAID, OTHER ==
[~2023-11-29] VITALS: Ht 185.4 cm; Wt 93.0 kg
[2023-11-29] MEDS ORDERED: TAMS-12 PO (04:28)
[2023-11-29 04:29] VITALS: BP 143/88; TEMP 98.1; O2SAT 98
== END 2023-11-29 04:54 | disposition home or self-care (01) ==
LOC: ER 03:54
DX: N40.0 Benign prostatic hyperplasia without lower urinary tract symptoms (principal); Z76.0 Encounter for issue of repeat prescription; I10 Essential (primary) hypertension; F25.9 Schizoaffective disorder, unspecified; F17.200 Nicotine dependence, unspecified, uncomplicated

== ENCOUNTER 2023-12-27 18:54 | Emergency (ER) | payer OTHER ==
[~2023-12-27] VITALS: Ht 185.4 cm; Wt 87.5 kg
[~2023-12-27 18:54] MED LIST changes: +TAMS-12 PO
[2023-12-27 19:12] VITALS: BP 135/87; TEMP 98.1; O2SAT 98
[2023-12-27 19:51] LABS: BASOPHILS # (AUTO) 0.1 K/uL (0.0-0.2); BASOPHILS % (AUTO) 1.1 % (0.0-2.0); EOSINOPHILS % (AUTO) 0.3 % (0.0-6.0); HEMATOCRIT 42 % (39-51); HEMOGLOBIN 14.2 g/dL (13.5-17.5); LYMPHOCYTES # (AUTO) 1.4 K/uL (0.8-4.8); LYMPHOCYTES % (AUTO) 17.5 % (20.0-44.0); MEAN CORPUSCULAR HEMOGLOBIN 32 PG (26.0-33.0); MEAN CORPUSCULAR HGB CONC 34 g/dl (31.0-36.0); MEAN CORPUSCULAR VOLUME 95 fL (80-96); MONOCYTES # (AUTO) 0.7 K/uL (0.1-1.30); MONOCYTES % (AUTO) 8.5 % (2.0-12.0); NEUTROPHILS # (AUTO) 5.7 K/uL (1.8-8.9); NEUTROPHILS % (AUTO) 72.6 % (43.0-81.0); PLATELET COUNT (AUTO) 324 K/uL (150-450); RED BLOOD CELL COUNT(AUTO) 4.44 MIL/uL (4.5-6.0); RED CELL DISTRIBUTION WIDTH 13.7 % (11.5-15.0); WHITE BLOOD COUNT (AUTO) 7.8 K/uL (4.3-11.0)
[2023-12-27 20:22] LABS: APPEARANCE,URINE Slightly Cloudy (CLEAR); BILIRUBIN,URINE SMALL (NEGATIVE); BLOOD, URINE Negative Ery/uL (NEGATIVE); COLOR,URINE DARK YELLOW (YELLOW); KETONES,URINE 15 mg/dL (NEGATIVE); LEUKOCYTE ESTERASE ,URINE Negative (NEGATIVE); NITRITE, URINE Negative (NEGATIVE); PH,URINE 5.5 (5.0-8.0); PROTEIN,URINE 100 mg/dl (NEGATIVE); UGLUCOSE Negative (NEGATIVE)
[2023-12-27 20:38] LABS: BARBITURATE, URINE NEGATIVE (NEGATIVE); BENZODIAZEPINE, URINE NEGATIVE (NEGATIVE); COCCAINE, URINE NEGATIVE (NEGATIVE); OPIATE, URINE NEGATIVE (NEGATIVE); PHENCYCLIDINE SCREEN,URINE NEGATIVE (NEGATIVE)
[2023-12-27 20:41] LABS: AMPHETAMINE, URINE POSITIVE (NEGATIVE); CANNABINOID, URINE POSITIVE (NEGATIVE)
[2023-12-27 21:12] LABS: RBC,URINE 0-2 /HPF (0-2); WBC,URINE 0-2 /HPF (0-3)
[2023-12-27 21:13] LABS: ADD URINE CULTURE NO; BACTERIA,URINE Rare /HPF (None Seen); SPERM,URINE Few /HPF (None Seen); SQUAMOUS EPITHELIAL CELL,UR Moderate /HPF (None Seen); URINE AMORPHOUS URATE Few /HPF (None Seen)
[2023-12-27 21:20] LABS: ALCOHOL, BLOOD < 3 mg/dL (0-10); ALKALINE PHOSPHATASE 81 U/L (46-116); ASPARTATE AMINOTRANSFERASE 56 U/L (15-37); BILIRUBIN,TOTAL 1.2 mg/dL (0.2-1.0); CALCIUM, SERUM 9.2 mg/dL (8.5-10.1); CARBON DIOXIDE 24 mmol/L (21-32); CREATININE 1.2 mg/dL (0.6-1.3); GLUCOSE 92 mg/dL (74-106); TOTAL PROTEIN, SERUM 8.1 g/dL (6.4-8.2); UREA NITROGEN, BLOOD 19 mg/dL (7-18)
[2023-12-27 21:35] LABS: ALANINE AMINOTRANSFERASE 65 U/L (12-78); ALBUMIN 4.2 g/dL (3.4-5.0); BILIRUBIN,DIRECT 0.4 mg/dL (0.0-0.2); CHLORIDE 100 mmol/L (98-107); POTASSIUM 4.1 mmol/L (3.5-5.1); SODIUM SERUM 135 mmol/L (136-145)
[2023-12-27 21:37] LABS: ACETAMINOPHEN 0 ug/ml (10-30); SALICYLATE < 0.2 mg/dL (2.8-20.0)
== END 2023-12-28 02:39 ==
LOC: ER 18:56
DX: F32.A Depression, unspecified (principal); I10 Essential (primary) hypertension; N40.0 Benign prostatic hyperplasia without lower urinary tract symptoms; F20.9 Schizophrenia, unspecified; F17.200 Nicotine dependence, unspecified, uncomplicated; Z79.899 Other long term (current) drug therapy; Z20.822 Contact with and (suspected) exposure to COVID-19; Z88.1 Allergy status to other antibiotic agents
CPT/HCPCS: 36415; 80048-TC; 80076-TC; 81001; 85025-TC; G0480

== ENCOUNTER 2024-06-30 01:30 | Emergency (ER) | payer OTHER ==
[~2024-06-30] VITALS: Ht 188 cm; Wt 99.8 kg
[2024-06-30 02:13] LABS: BASOPHILS % (AUTO) 0.3 % (0.0-2.0); HEMATOCRIT 43 % (39-51); HEMOGLOBIN 14.3 g/dL (13.5-17.5); LYMPHOCYTES # (AUTO) 0.8 K/uL (0.8-4.8); LYMPHOCYTES % (AUTO) 9.6 % (20.0-44.0); MEAN CORPUSCULAR HEMOGLOBIN 32 PG (26.0-33.0); MEAN CORPUSCULAR HGB CONC 33 g/dl (31.0-36.0); MEAN CORPUSCULAR VOLUME 97 fL (80-96); MONOCYTES # (AUTO) 0.4 K/uL (0.1-1.30); MONOCYTES % (AUTO) 4.5 % (2.0-12.0); NEUTROPHILS # (AUTO) 7.4 K/uL (1.8-8.9); NEUTROPHILS % (AUTO) 85.6 % (43.0-81.0); PLATELET COUNT (AUTO) 295 K/uL (150-450); RED BLOOD CELL COUNT(AUTO) 4.46 MIL/uL (4.5-6.0); RED CELL DISTRIBUTION WIDTH 14.7 % (11.5-15.0); WHITE BLOOD COUNT (AUTO) 8.6 K/uL (4.3-11.0)
[2024-06-30 02:30] LABS: APPEARANCE,URINE CLEAR (CLEAR); BILIRUBIN,URINE NEGATIVE (NEGATIVE); BLOOD, URINE NEGATIVE Ery/uL (NEGATIVE); COLOR,URINE YELLOW (YELLOW); KETONES,URINE NEGATIVE (NEGATIVE); LEUKOCYTE ESTERASE ,URINE NEGATIVE (NEGATIVE); NITRITE, URINE NEGATIVE (NEGATIVE); PROTEIN,URINE TRACE mg/dl (NEGATIVE); UGLUCOSE NEGATIVE (NEGATIVE); UROBILINOGEN,URINE 0.2 EU/dL (0.2)
[2024-06-30 02:32] LABS: ALBUMIN 4.3 g/dL (3.4-5.0); BILIRUBIN,TOTAL 0.6 mg/dL (0.2-1.0); CALCIUM, SERUM 9.6 mg/dL (8.5-10.1); CREATININE 0.9 mg/dL (0.6-1.3); POTASSIUM 4.4 mmol/L (3.5-5.1); TOTAL PROTEIN, SERUM 8.2 g/dL (6.4-8.2)
[2024-06-30 02:48] LABS: AMPHETAMINE, URINE POSITIVE (NEGATIVE); BARBITURATE, URINE NEGATIVE (NEGATIVE); BENZODIAZEPINE, URINE NEGATIVE (NEGATIVE); CANNABINOID, URINE NEGATIVE (NEGATIVE); COCCAINE, URINE NEGATIVE (NEGATIVE); OPIATE, URINE NEGATIVE (NEGATIVE); PHENCYCLIDINE SCREEN,URINE NEGATIVE (NEGATIVE)
[2024-06-30 02:52] LABS: ADD URINE CULTURE NO; BACTERIA,URINE Rare /HPF (None Seen); MUCUS,URINE Few /LPF (None Seen); RBC,URINE NONE SEEN /HPF (0-2); SPERM,URINE Rare /HPF (None Seen); SQUAMOUS EPITHELIAL CELL,UR 0-2 /HPF (None Seen); WBC,URINE NONE SEEN /HPF (0-3)
[2024-06-30] MEDS ORDERED: KETOROLAC TROMETHAMINE INJ 30 MG/ML VIAL ONE (05:04)
[2024-06-30] MEDS ORDERED: DOCU-141 PO (05:16)
[2024-06-30] MEDS: KETOROLAC TROMETHAMINE INJ 30 MG/ML VIAL IV ONE (05:22)
[2024-06-30] MEDS ORDERED: CT SWABBABLE VALVE TRANS SET 1 EA INFUS.SET MC ONE (05:27)
[2024-06-30] MEDS ORDERED: IV NS 0.9% 250 ML IV ONE (05:27)
[2024-06-30] MEDS ORDERED: IOHEXOL-300 100 ML VIAL IV ONE (05:27)
[2024-06-30] MEDS ORDERED: POLY17PO4 PO (07:47)
[2024-06-30] MEDS: POLYETHYLENE GLYCOL 3350 17 GM POWD.PACK PO ONE (08:13)
[2024-06-30] MEDS ORDERED: LORAZEPAM INJ 2 MG/ML VIAL ONE (12:50)
[2024-06-30] MEDS: LORAZEPAM INJ 2 MG/ML VIAL IV ONE (13:00)
[2024-06-30] MEDS: IV NS 0.9% 1,000 ML BAG IV ONE (13:00)
[2024-06-30 18:58] VITALS: BP 135/74; TEMP 98.5; O2SAT 100
[2024-07-02] MEDS ORDERED: methylPREDNISolone SOD SUCC 125 MG/2ML VIAL ONE (23:37)
== END 2024-06-30 18:58 | disposition home or self-care (01) ==
LOC: ER 01:41
DX: R10.32 Left lower quadrant pain (principal); I10 Essential (primary) hypertension; N40.0 Benign prostatic hyperplasia without lower urinary tract symptoms; F25.9 Schizoaffective disorder, unspecified; F17.200 Nicotine dependence, unspecified, uncomplicated; Z88.8 Allergy status to other drugs, medicaments and biological substances
CPT/HCPCS: 99285; 74177; 96374; 96361; 96375; 85025; 83690; 36415; 80053; 80307; 81001; 74176; J2060; J1885; J7030; J7050; Q9967; J2919